=== PATIENT | female | born 1935 | race Caucasian/White ===

== ENCOUNTER 2017-10-10 09:37 | Inpatient (IN) | payer MEDICARE, OTHER, SELFPAY ==
[2017-09-29 15:06] VITALS: BP 159/76; PULSE 83; RESP 16; TEMP 37.1; O2SAT 93; BMI 22.6
--- NOTE | 2017-09-29 15:31 | SDCEKG_ITS ---
Test Reason : Blood Pressure : / mmHG Vent. Rate : 077 BPM Atrial Rate : 077 BPM P-R Int : 154 ms QRS Dur : 088 ms QT Int : 368 ms P-R-T Axes : 075 021 067 degrees QTc Int : 416 ms Normal sinus rhythm Normal ECG Confirmed by SIOMARA SARMIENTO, THERESE ([id number]), news videotape editor SOLOMON QUARLES ([id number]) on 10/03/2017 3:05:15 PM Referred By: Yoni Canchola Confirmed By:THERESE STRINGER MD
[2017-09-29 16:05] LABS: Hematocrit 37.2 % (37-47); Hemoglobin 12.3 g/dl (12.0-15.0); Mean Corp Hgb Conc 33.1 g/gl (32-36); Mean Corpuscular Hgb 29.1 pg (27.0-32.0); Mean Corpuscular Volume 87.9 fL (81-99); Mean Platelet Vol. 10.7 fl (6.2-12.0); Platelet Count 181 K/mm3 (150-450); RBC Distribution Width CV 13.6 % (11.6-14.6); Red Blood Count 4.23 M/mm3 (4.2-5.4)
[2017-09-29 16:06] LABS: Scan Indicated on CBC? Y/N NO
[2017-09-29 16:17] LABS: Anion Gap 5 (5-15); BUN 18 mg/dL (7-18); BUN/Creat Ratio 21.1 RATIO (10-20); Calcium,Total 8.9 mg/dL (8.5-10.1); Chloride 104 mmol/L (98-107); Creatinine, Serum 0.85 mg/dL (0.55-1.02); EST Glomerular Filtration Rate 68 mL/min (>60); Est Glom Filt Rate - Afr Amer 82 mL/min (>60); Estimated Creatinine Clearance 45.12 ml/min; Glucose 95 mg/dL (74-106); Potassium 4.1 mmol/L (3.5-5.1); Sodium Level 139 mmol/L (136-145)
[2017-10-10] VITALS (13 sets, daily range): BP systolic 124–218; BP diastolic 64–96; PULSE 64–88; RESP 14–18; TEMP 36.2–36.7; O2SAT 91–100; BMI 22.6
--- NOTE | 2017-10-10 | KNEE_PTH ---
PATIENT: JOVANY LEPE LOC: MS3 U#:[id number] AGE/SX: 82/F ROOM: [facility]313 RE10/10/[address]: Dr. Yoni Canchola DO : 1935 BED: 1 DIS: 10/12/2017 SPEC #: [id number] RECD: 10/10/17 16:09 STATUS: RAMESH REHailee #: [id number] RAGHAV: 10/10/17 00:[address]: Yoni Canchola DEPT: SURGICAL PATHOLOGY RECD BY: Yimi Franklin ENTERED: 10/11/17 08:13 SP TYPE: TOTAL KNEE OTHR DR: Dr. Maurice Hanks MD Tissues: Knee, NOS Procedures: Decalcification bone/plaque Surgery Specimen Level IV HEADER OPERATION: Left total knee replacement PRE-OP DIAGNOSIS: Osteoarthritis, left knee TISSUE SUBMITTED: Bone and tissue, left knee MICROSCOPIC DIAGNOSIS Bone and tissue, left knee, total knee replacement: Pieces of bone with degenerative osteoarthritic changes. Fibroadipose tissue, fibroconnective tissue and reactive synovial tissue. CANDICE:nova 10/13/17 MICROSCOPIC DESCRIPTION Slides are reviewed. GROSS DESCRIPTION Received is one container designated bone and tissue left knee. The specimen consists of multiple fragments of valadez-yellow bone measuring in aggregate 12 x 11 x 2 cm. Also in the specimen container are multiple fragments of yellow-white soft tissue measuring in aggregate 2 x 1 x 1 cm. A number of bony fragments contain articular surfaces consistent with tibial plateau and femoral condyle and displaying prominent osteophyte formation, eburnation, and bone erosion. Detonator Assembler sections are submitted in two cassettes as follows: 1 - soft tissue, 2 - bone after decalcification. / AM:nova 10/11/17 TC:5 [facility]: [id number]
[2017-10-10] MEDS: Acetaminophen 500 MG Tablet 1000 MG PO ×2 (10:15→20:53)
[2017-10-10] MEDS: oxyCODONE HCl Cr 10 MG Tablet PO (10:15)
[2017-10-10] MEDS: Lactated Ringers 1,000 ML 999 ML IV (10:41)
[2017-10-10] MEDS: Cefazolin 2 GM in 0.9% Normal Saline 100 ML IV (12:22)
--- NOTE | 2017-10-10 14:02 | PCM.IMDPSTOP ---
Immediate Post-Op Note Date of Procedure: 10/10/17 Primary Surgeon/Physician: Yoni Canchola electric meter technician: Karan Singh Pre-Operative Diagnosis: OA left knee with osteochondroma femur Post-Operative Diagnosis: same Surgery/Procedure Performed:: Left tkr Description of Surgical Findings:: see note Estimated Blood Loss: 25cc Specimen's removed: bone Type of Anesthesia:: Spinal General Anesthesia, Spinal/Supplemental ASA Class: ASA2 Mod Systematic Disease - Admit VTE Documentation VTE Present on Admission: No VTE Mechan Device Prophylaxis: SCD's, Thigh High LIZZETTE Hose VTE Pharm Prophylaxis ordered?: Yes
--- NOTE | 2017-10-10 14:24 | RAD_ITS ---
STUDY: X-RAY - LEFT KNEE REASON FOR EXAM: Female, 82 years old. Postop TECHNIQUE: 2 view(s) of the knee. COMPARISON: None. FINDINGS: There is a left knee arthroplasty. There are overlying skin tessie. There is gas in the joint space. RAD/Knee 1 or 2 Views IMPRESSION: 3 part left knee arthroplasty postoperative change. Electronically Signed: Ann Marie Reyna MD at 14:58 EDT Tel , Service support ,
[2017-10-10 14:52] LABS: Hematocrit 36.5 % (37-47); Hemoglobin 11.6 g/dl (12.0-15.0); Mean Corp Hgb Conc 31.8 g/gl (32-36); Mean Corpuscular Hgb 28.7 pg (27.0-32.0); Mean Corpuscular Volume 90.3 fL (81-99); Mean Platelet Vol. 10.6 fl (6.2-12.0); Platelet Count 164 K/mm3 (150-450); RBC Distribution Width CV 13.3 % (11.6-14.6); RBC Distribution Width SD 43.5 fl (35.1-43.9); Red Blood Count 4.04 M/mm3 (4.2-5.4); Scan Indicated on CBC? Y/N NO; White Blood Count 5.3 K/mm3 (4.4-11.0)
[2017-10-10] MEDS: Lactated Ringers 1,000 ML 80 ML IV (18:09)
[2017-10-10] MEDS: Aspirin 325 MG Tablet PO (18:09)
[2017-10-10] MEDS: Cefazolin 1 GM/50 ML BAG IV (20:51)
[2017-10-10] MEDS: Gabapentin 100 MG Capsule PO (20:53)
[2017-10-10] MEDS: Propranolol 10 MG Tablet 20 MG PO (20:53)
[2017-10-11 01:54] VITALS: BP 154/70; PULSE 72; RESP 14; TEMP 36.7; O2SAT 96
[2017-10-11] MEDS: oxyCODONE 5 MG Tablet PO ×5 (02:01→20:50)
[2017-10-11] MEDS: Acetaminophen 500 MG Tablet 1000 MG PO ×3 (05:03→21:06)
[2017-10-11] MEDS: Cefazolin 1 GM/50 ML BAG IV (05:03)
[2017-10-11 06:28] LABS: Hematocrit 32.5 % (37-47); Hemoglobin 10.2 g/dl (12.0-15.0); Mean Corp Hgb Conc 31.4 g/gl (32-36); Mean Corpuscular Hgb 28.4 pg (27.0-32.0); Mean Corpuscular Volume 90.5 fL (81-99); Mean Platelet Vol. 10.9 fl (6.2-12.0); Platelet Count 129 K/mm3 (150-450); RBC Distribution Width CV 13.6 % (11.6-14.6); RBC Distribution Width SD 45.2 fl (35.1-43.9); Red Blood Count 3.59 M/mm3 (4.2-5.4); White Blood Count 5.5 K/mm3 (4.4-11.0)
[2017-10-11 06:29] LABS: Scan Indicated on CBC? Y/N NO
[2017-10-11 06:30] LABS: Anion Gap 8 (5-15); BUN 17 mg/dL (7-18); BUN/Creat Ratio 17.3 RATIO (10-20); Calcium,Total 7.9 mg/dL (8.5-10.1); Chloride 105 mmol/L (98-107); Creatinine, Serum 0.98 mg/dL (0.55-1.02); EST Glomerular Filtration Rate 57 mL/min (>60); Est Glom Filt Rate - Afr Amer 69 mL/min (>60); Estimated Creatinine Clearance 39.14 ml/min; Glucose 91 mg/dL (74-106); Potassium 4.4 mmol/L (3.5-5.1); Sodium Level 136 mmol/L (136-145)
[2017-10-11 07:31] VITALS: BP 105/49; PULSE 68; RESP 18; TEMP 36.4; O2SAT 95
[2017-10-11] MEDS: Multivitamins,Therapeutic Tablet 1 TABLET PO (07:32)
[2017-10-11] MEDS: Aspirin 325 MG Tablet PO ×2 (07:32→16:36)
[2017-10-11] MEDS: Vitamin E 400 UNITS Capsule PO (07:33)
[2017-10-11] MEDS: Calcium Carb/Vitamin D 1 TABLET Tablet PO (07:33)
--- NOTE | 2017-10-11 08:00 | PCM.PN.ORT ---
Subjective: Doing well, pain well controlled. - Physical Exam General: Alert, Oriented x3, No apparent distress HEENT: Atraumatic Oral: Moist Mucosa Lungs: Clear to auscultation Skin: Incision - C/D/I Musculoskeletal: Tenderness - left knee as expected Neurological: Neuro grossly intact Vital Signs Temp Pulse Resp BP Pulse Ox 97.5 F L 68 18 105/49 L 95 10/11/17 07:31 10/11/17 07:31 10/11/17 07:31 10/11/17 07:31 10/11/17 07:31 Oxygen Delivery Method Room Air Weight: 138 lb Body Mass Index (BMI) 22.6 Intake and Output for Last 24 Hours 10/09/17 10/10/17 10/11/17 23:59 23:59 23:59 Intake Total 4100 / 4100 656 / 656 Balance 4100 / 4100 656 / 656 Laboratory Tests Past 24 Hrs 10/10/17 10/11/17 10/11/17 14:40 05:46 05:46 WBC 5.3 5.5 RBC 4.04 L 3.59 L Hgb 11.6 L 10.2 L Hct 36.5 L 32.5 L MCV 90.3 90.5 MCH 28.7 28.4 MCHC 31.8 L 31.4 L RDW 13.3 13.6 RDW Differential 43.5 45.2 H Plt Count 164 129 L MPV 10.6 10.9 Sodium 136 Potassium 4.4 Chloride 105 Carbon Dioxide 23.0 Anion Gap 8 BUN 17 Creatinine 0.98 Estim Creat Clear Calc 39.14 Est GFR (MDRD) Af Amer 69 Est GFR (MDRD) Non-Af 57 L BUN/Creatinine Ratio 17.3 Glucose 91 Calcium 7.9 L Medical Necessity - Tobacco Use Smoking Status: Never smoker Assessment/Plan POD #1 Left TKR PT today, patient hopes to go to rehab for a short stay, will have her discuss with outreach and education social worker and check insurance
[2017-10-11 13:13] VITALS: BP 130/79; PULSE 88; RESP 18; TEMP 36.3; O2SAT 94
--- NOTE | 2017-10-11 16:04 | CASEMGMT ---
SUNIL TSE Face to Face with patient for initial transition planning/care coordination assessment. SUNIL TSE introduced self and role at [facility]. Patient sitting in chair, alert and oriented. Patient willing to participate in assessment and is able to answer all questions appropriately. Care providers, pharmacy, and demographics verified. Patient states she lives in 1 story home with with 2 steps to enter home. Patient states she has shower chair, BSC, raised toilet seat, grab bars, hip kit, and walker at home. Patient wishes to discharge home and is setup with [facility] for outpatient therapy with providing transportation. Patient states she has no further needs or concerns at this time. CM to follow for discharge planning needs that may arise. Disposition plan: Patient to discharge home with outpatient surgery, family support, and follow-up plans in place. Ramona Major RN, CM
[2017-10-11] MEDS: Ketorolac 15 MG/ML Vial IV (19:34)
[2017-10-11] MEDS: 0.9% NaCl Peripheral Flush Adult/Peds IV (19:35)
[2017-10-11 20:53] VITALS: BP 166/80; PULSE 96; RESP 18; TEMP 36.4; O2SAT 92
[2017-10-11] MEDS: Propranolol 10 MG Tablet 20 MG PO (21:07)
[2017-10-11] MEDS: Gabapentin 100 MG Capsule PO (21:07)
[2017-10-12] MEDS: oxyCODONE 5 MG Tablet PO ×3 (00:51→10:37)
[2017-10-12 03:57] VITALS: BP 133/67; PULSE 87; RESP 18; TEMP 37; O2SAT 94
[2017-10-12] MEDS: Acetaminophen 500 MG Tablet 1000 MG PO ×2 (06:25→13:00)
--- NOTE | 2017-10-12 08:04 | PCM.PN.ORT ---
Subjective: Doing well this AM. Had spasms in left leg last night, but has passed. Ready to go home after PT today. - Physical Exam General: Alert, Oriented x3, No apparent distress Skin: Incision - C/D/I Musculoskeletal: Tenderness - left knee as expected. No spasm, negative Ross and Amaury signs Vital Signs Temp Pulse Resp BP Pulse Ox 98.6 F 87 18 133/67 H 94 10/12/17 03:57 10/12/17 03:57 10/12/17 03:57 10/12/17 03:57 10/12/17 03:57 Oxygen Delivery Method Room Air Weight: 138 lb 0.15 oz Body Mass Index (BMI) 22.6 Intake and Output for Last 24 Hours 10/10/17 10/11/17 10/12/17 23:59 23:59 23:59 Intake Total 4100 / 4100 1716 / 1716 300 / 300 Balance 4100 / 4100 1716 / 1716 300 / 300 Medical Necessity - Tobacco Use Smoking Status: Never smoker Assessment/Plan s/ left TKR PT this am and home this PM
--- NOTE | 2017-10-12 09:59 | PCM.DC.TKR ---
Discharge Diet: No Restrictions Discharge Activity: May Not Drive, May Shower, Use Walker May shower in (days): 1 Ice area for (Minutes): 20 - each hour while awake. Weight Bearing Status: Weight bearing as tolerated Elevate: Operative Extremity Additional Activity Instructions:: Wear elastic stockings for 2 weeks after your surgery. Call your doctor if your incision/area has: Continuous Slow Oozing, Sudden Increased Bleeding, Increased Pain/ Swelling, Increased Redness, Foul Smelling Discharge Call your doctor if you observe: Fever of 101 or Higher, Coldness, Increased Pain - in extremity, Numbness or Tingling, Change in Color, Calf discomfort, Uncontrolled pain Change Dressing in (Days):: 0 - and daily as needed. Remove Dressing in (days):: 8 Cleanse incision/area with: Soap & Water Allergies/Adverse Reactions: Allergies Sulfa (Sulfonamide Antibiotics) Allergy (Verified 04/09/16 14:52) Rash CRYSTAL LIGHT LEMONADE Allergy (Uncoded 04/09/16 14:52) Swelling Medications to take at Discharge Calcium Carbonate/Vitamin D3 [Calcium 600-Vit D3 800 Tablet] 1 each PO DAILY 04/09/16 Cholecalciferol (Vitamin D3) [Vitamin D3] 1,000 unit PO DAILY 04/09/16 Cranberry Extract [Cranberry] 400 mg PO DAILY 04/09/16 Multivitamins,Therapeutic [Multivitamin] 1 tablet PO DAILY 04/09/16 Propranolol HCl [Inderal (Beta Donna)] 20 mg PO QHS 04/09/16 Vitamin E 400 units PO DAILY 04/09/16 Gabapentin [Neurontin] 100 mg PO QHS 09/29/17 Acetaminophen [Tylenol] 1,000 mg PO Q8 #90 tab 10/12/17 Aspirin 325 mg PO BIDCM #60 tab 10/12/17 Cyclobenzaprine [Flexeril] 5 mg PO Q12.TCU 7 Days #14 tab 10/12/17 Oxycodone [Oxyir] 5 - 10 mg PO Q4H PRN PRN 7 Days #80 tab 10/12/17 The following prescriptions were given: Oxycodone [Oxyir] 5 - 10 mg PO Q4H PRN PRN 7 Days #80 tab PRN Reason: Mod-Severe Pain (4-01/11) Acetaminophen [Tylenol] 1,000 mg PO Q8 #90 tab Cyclobenzaprine [Flexeril] 5 mg PO Q12.TCU 7 Days #14 tab Aspirin 325 mg PO BIDCM #60 tab Primary Care Physician: Maurice Hanks MD [Primary Care Provider] - Test Results: Test results from this visit will be discussed in further detail at your follow-up appointment, if applicable. Please Follow Up With: Yoni Canchola DO
[2017-10-12] MEDS: Calcium Carb/Vitamin D 1 TABLET Tablet PO (10:33)
[2017-10-12] MEDS: Vitamin E 400 UNITS Capsule PO (10:33)
[2017-10-12] MEDS: Multivitamins,Therapeutic Tablet 1 TABLET PO (10:33)
[2017-10-12] MEDS: Aspirin 325 MG Tablet PO (10:33)
[2017-10-12 10:40] VITALS: BP 124/62; PULSE 83; RESP 18; TEMP 37.1; O2SAT 96
== END 2017-10-12 13:10 | disposition home or self-care (01) | DRG 470 ==
LOC: ACINP 09:38 → MS3 13:59
PROVIDERS: Admitting Provider Orthopaedic Surgery; Family Provider Family Medicine; PCP Family Medicine; Visit Provider Orthopaedic Surgery
PROC: 0SRD0J9 Replacement of Left Knee Joint with Synthetic Substitute, Cemented, Open Approach (ICD-10-PCS; CPT 27447; principal; 2017-10-10 12:05)
DX: M17.12 Unilateral primary osteoarthritis, left knee (principal); D16.22 Benign neoplasm of long bones of left lower limb
CPT/HCPCS: 36415; 73560; 80048; 85027; 87081; 88305; 88311; 93005; 97110; 97162; 97165; 97530; C1776; J7120; A4216

== ENCOUNTER → 2018-08-22 | Outpatient (CLI) | payer MEDICARE, OTHER, SELFPAY ==
--- NOTE | 2018-08-22 09:03 | NM_ITS ---
CLINICAL: 83-year-old female with reported history of painful right hip arthroplasty operated approximately 9 years previous. LIMITED 99m Tc MDP THREE PHASE BONE SCINTIGRAPHY COMPARISON: None available FINDINGS: Following the intravenous administration of 25.8 mCi of 99m Tc MDP, three-phase bone acquisitions of the pelvis reveal: 1. The flow and immediate static blood pool acquisitions demonstrate normal-symmetric arterial and venous phase distribution of the radiopharmaceutical to the bilateral anterior hemipelvis. Venous hyperemia appears evident in the region of the posterior aspect of the proximal femoral component of the right hip prosthesis. 2. Delayed images depict subtle increased tracer concentration noted in the proximal and distal femoral component of the symptomatic right hip prosthesis. 3. An increase in tracer distribution is noted in the fifth lumbar vertebra posteriorly on the right. Otherwise, the remaining limited skeletal structures are scintigraphically unremarkable. Mild enhanced tracer uptake is noted in the proximal femoral component of the asymptomatic left hip arthroplasty most consistent with normal postsurgical change. NM/Bone Scan Three Phase IMPRESSION: 1. The minimally increased radiopharmaceutical distribution noted in the femoral component of the symptomatic right hip prosthesis which may represent mild loosening in the setting of operative intervention > 2 years prior to the current presentation. If an infectious ideology is contemplated, correlation with labeled leukocyte imaging is recommended. 2. Degenerative arthritis is defined in the fifth lumbar vertebra. Electronically Signed: Arthur Mosquera DO at 10:35 EDT Tel , Service support ,
== END | disposition home or self-care (01) ==
LOC: NM 09:00
PROVIDERS: Family Provider Family Medicine; PCP Family Medicine; Referring Provider Physician Assistant; Visit Provider Physician Assistant
DX: Z96.641 Presence of right artificial hip joint (principal)
CPT/HCPCS: 78315

== ENCOUNTER → 2019-01-05 | Outpatient (CLI) | payer MEDICARE, OTHER, SELFPAY ==
[2017-10-10 16:27] VITALS: BMI 22.6
[2019-01-05 12:50] LABS: Erythrocyte Sedimentation Rate 10 mm/hr (0-30)
[2019-01-05 12:52] LABS: Absolute Lymphocyte Count 1.03 X10^3/uL (0.83-4.51); Basophil# 0.05 X10^3/uL; Basophil% 0.8 % (0-1); Eosinophil# 0.19 X10^3/uL; Eosinophils% 3.2 % (0-5); Hematocrit 39.1 % (37-47); Hemoglobin 12.7 g/dL (12.0-15.0); Lymphocyte # 1.03 X10^3/ul (4.0); Lymphocyte % 17.5 % (19-41); Mean Corp Hgb Conc 32.5 g/dL (32-36); Mean Corpuscular Hgb 30.7 pg (27.0-32.0); Mean Corpuscular Volume 94.4 fL (81-99); Mean Platelet Vol. 10.7 fl (6.2-12.0); Monocyte# 0.59 X10^3/uL; NRBC Flagged by Analyzer 0 % (0-5); Platelet Count 191 K/mm3 (150-450); RBC Distribution Width CV 13.1 % (11.6-14.6); RBC Distribution Width SD 44.3 fl (35.1-43.9); Red Blood Count 4.14 M/mm3 (4.2-5.4); White Blood Count 5.9 K/mm3 (4.4-11.0)
== END | disposition home or self-care (01) ==
PROVIDERS: Family Provider Family Medicine; PCP Family Medicine; Referring Provider Specialist; Visit Provider Specialist
DX: Z96.641 Presence of right artificial hip joint (principal)
CPT/HCPCS: 36415; 85025; 85652; 86140

== ENCOUNTER → 2019-01-11 | Outpatient (CLI) | payer MEDICARE, OTHER, SELFPAY ==
--- NOTE | 2019-01-11 10:10 | RAD_ITS ---
EXAM DESCRIPTION: Left hip aspiration CLINICAL HISTORY: 83 years Female, left hip pain COMPARISON: None. TECHNIQUE: The procedure was explained to the patient. After this a skin site was marked with fluoroscopy. 16 seconds of fluoroscopy was utilized. Using fluoroscopy a needle was inserted into the left hip joint along the artificial left femoral neck. FINDINGS: An initial attempt was made to aspirate the ascites from the left hip joint and this was unsuccessful. After this, 6 cc of sterile saline was injected through the needle and approximately 7 cc of fluid was aspirated from the left hip joint including the sterile saline. This fluid collection was then capped and sent to laboratory for further analysis. 2 images of the left hip were obtained. RAD/Inj/Asp Umberto Jt Should/Hip/Knee IMPRESSION: A left hip aspiration under fluoroscopy was performed as described above and fluid was sent to laboratory for further analysis. Electronically Signed: Andrey Peters, at 15:59 EDT Tel , Service support ,
[2019-01-11 11:21] LABS: Synovial Fld Mononuclear WBC % 72.5 %; Synovial Fld Polynuclear WBC # 0.557 10^3/uL; Synovial Fld Polynuclear WBC % 27.5 %
[2019-01-11 11:38] LABS: AUTO B FLUID DILUENT BKGD CT WBC <0.1 RBC <0.01 (W<.1,R<.01); Appearance /Synovial Fluid Sl Cl (CLEAR); Color / Synovial Fluid Yellow (Pale Yellow)
[2019-01-11 11:39] LABS: RBC /Synovial Fluid 615 /mm3 (0)
[2019-01-11 11:50] LABS: Source / Synovial Fluid RT HIP
[2019-01-11 13:09] LABS: Lymph 24 %; Monocyte /Synovial Fluid 55 %; Neutrophil 17 % (0-25); Plasma Cell /Synovial Fluid 4 %
[2019-01-11 13:10] LABS: Body Fluid QC Type(s) BF1Q
[2019-01-12 10:11] LABS: Pathologist Comment Reviewed
== END | disposition home or self-care (01) ==
LOC: RAD 10:06
PROVIDERS: Family Provider Family Medicine; PCP Family Medicine; Referring Provider Specialist; Visit Provider Specialist
DX: M25.551 Pain in right hip (principal); Z96.641 Presence of right artificial hip joint
CPT/HCPCS: 20610; 77002; 87015; 87070; 87075; 87101; 87116; 87205; 87206; 89050; 89051; Q9967

== ENCOUNTER → 2020-02-18 14:01 | Outpatient (CLI) | payer MEDICARE, OTHER, SELFPAY ==
[2017-10-10 16:27] VITALS: BMI 22.6
--- NOTE | 2020-02-18 14:07 | CT_ITS ---
STUDY: CTA HEAD AND NECK WITH CONTRAST REASON FOR EXAM: Female, 85 years old. DYSTHRIA, TRANSIENT ALTERATION OF AWARENESS, EPISODES OF NAUSEA, HX-SKIN CA RADIATION DOSAGE (If Supplied By Facility): CTDIvol = ( 27.93 ) mGy, DLP = ( 1288.89 ) mGycm TECHNIQUE: CT angiography was performed with a multi-detector CT scanner. Data acquisition was obtained from the skull base through the vertex following intravenous administration of IV 100mL Isovue-370. MIP images were reconstructed from the axial data set. Post-processing of the angiographic images was performed, with multiplanar reformation and 3D reconstruction. Individualized dose optimization techniques were used for this CT. COMPARISON: No relevant priors. FINDINGS: Normal bilateral petrous carotid arteries. Normal right cavernous carotid artery with a normal supraclinoid bifurcation. Normal left cavernous carotid artery with a normal supraclinoid bifurcation. Normal right A1 segments of the anterior cerebral artery. Normal left A1 segments of the anterior cerebral artery. Normal intact anterior communicating artery (ACOM). Normal bilateral A2 segments of the anterior cerebral arteries. Normal right M1 and M2 segments of the middle cerebral arteries, with a normal M1 bifurcation. Normal left M1 and M2 segments of the middle cerebral arteries, with a normal M1 bifurcation. There is a persistent origin of the right posterior cerebral artery with absence of the posterior communicating artery (PCOM). Normal left posterior communicating artery (PCOM). Normal bilateral vertebral arteries. Normal basilar artery with a normal basilar bifurcation. The visualized bilateral superior cerebellar (SCA) arteries are normal. Normal bilateral P1, P2 and visualized P3 segments of the posterior cerebral arteries. There is no demonstrated aneurysm of the hopi of Kohli. There is no demonstrated abnormality of the visualized brain. AORTIC ARCH: There is a bovine origin of the great vessels arising from the aortic arch with a common origin of the brachiocephalic and left common carotid artery. Normal origin of the left subclavian artery. Normal origins of the brachiocephalic, left common carotid, and left subclavian arteries. RIGHT CAROTID ARTERIES: Normal right common carotid artery (CCA). There is mild atherosclerotic plaque formation with minimal narrowing of the right carotid bulb. There is mild atherosclerotic plaque formation of the origin of the right internal carotid artery with less than 50% cross sectional diameter stenosis. Normal visualized cervical portion of the right internal carotid artery. Normal origin of the right external carotid artery (ECA). LEFT CAROTID ARTERIES: Normal left common carotid artery (CCA). There is mild atherosclerotic plaque formation with minimal narrowing of the left carotid bulb. Normal origin of the left internal carotid (ICA) artery without a hemodynamically significant stenosis. Normal visualized cervical portion of the left internal carotid artery. Normal origin of the left external carotid artery (ECA). VERTEBRAL ARTERIES: Normal bilateral vertebral arteries. CT/CTA Head AND Neck W/ Contrast IMPRESSION: 1. Bovine arch. 2. Mild (20%) right carotid stenosis. 3. No left carotid stenosis. 4. Patent vertebral arteries bilaterally. 5. No intracranial stenosis or aneurysm. Electronically Signed: Arthur Ogden MD at 16:02 EST Tel , Service support ,
[2020-02-19 07:52] LABS: CREATININE FINGERSTICK 0.95 mg/dL (0.55-1.02)
== END ==
PROVIDERS: PCP Family Medicine
DX: R47.1 Dysarthria and anarthria (principal); R40.4 Transient alteration of awareness
CPT/HCPCS: 70496; 70498; Q9967

== ENCOUNTER 2020-09-10 15:58 | Observation (INO) | payer MEDICARE, OTHER, SELFPAY ==
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
[2020-09-03 13:21] LABS: Magnesium 2.1 mg/dL (1.6-2.6)
[2020-09-08 12:08] VITALS: BMI 22.6
[2020-09-10] VITALS (13 sets, daily range): BP systolic 165–212; BP diastolic 72–99; PULSE 76–96; RESP 16–18; TEMP 35.9–36.8; O2SAT 93–100; BMI 22.4
--- NOTE | 2020-09-10 | KNEE_PTH ---
PATIENT: JOVANY LEPE LOC: MS3 U#:[id number] AGE/SX: 85/F ROOM: [facility] RE09/10/[address]: Dr. Rojelio Stacy MD : 1935 BED: 1 DIS: 09/11/2020 SPEC #: [id number] RECD: 09/10/20 15:18 STATUS: RAMESH TATIANA #: [id number] RAGHAV: 09/10/20 00:[address]: Rojelio Stacy DEPT: SURGICAL PATHOLOGY RECD BY: Eduin Gerardo ENTERED: 09/11/20 08:17 SP TYPE: TOTAL KNEE OTHR DR: DO Dr. Maurice Heredia MD Dr. Steven Widmer, MD Tissues: Knee, NOS Procedures: Decalcification bone/plaque Surgery Specimen Level IV HEADER OPERATION: ERAS, knee revision patella component, polyethylene exchange PRE-OP DIAGNOSIS: Painful left total knee arthroplasty; autonomic dysfunction; rheumatoid arthritis TISSUE SUBMITTED: Tissue left knee MICROSCOPIC DIAGNOSIS Bone and soft tissue of left knee, total knee resection: Consistent with degenerative joint disease. AM:nova 09/15/2020 MICROSCOPIC DESCRIPTION Slides are reviewed. GROSS DESCRIPTION Received in fixative is one container labeled with the patient's name and designated tissue left knee. The specimen consists of an irregular piece of valadez, indurated tissue measuring 13 x 6 x 1 cm. Also present in the container are two pieces of bone measuring in aggregate 3 x 1.5 x 0.3 cm. Also present in the container is a polymer with a central hole measuring 2.5 x 2.5 x 0.2 cm, most likely representing the patellar component. Radar Technician sections are submitted in three cassettes as follows: 1 & 2 - soft tissue, 3 - bone after decalcification, submitted in entirety. The polymer component is for gross identification only. / SJ:nova 09/11/20 TC:5 CPT: 63730, 63587
[2020-09-10] MEDS: Acetaminophen 500 MG Tablet 1000 MG PO ×2 (10:39→22:09)
[2020-09-10] MEDS: Gabapentin 600 MG Tablet PO (10:39)
[2020-09-10] MEDS: Lactated Ringers 1,000 ML 999 ML IV ×2 (10:39→14:00)
[2020-09-10 11:05] LABS: Bedside Glucose 102 mg/dL (70-110)
[2020-09-10] MEDS: Cefazolin 2 GM in 0.9% Normal Saline 100 ML IV (11:50)
[2020-09-10] MEDS: dexAMETHasone 10 MG/ML Vial IV (12:15)
--- NOTE | 2020-09-10 13:15 | OP.PCM_ITS ---
Report of Operation Date of Procedure: 09/10/20 Pre-Operative Diagnosis: Painful left total knee replacement, instability and p atellofemoral overstuffing Post-Operative Diagnosis: Painful left total knee replacement, instability and patellofemoral overstuffing Surgery/Procedure Performed:: Revision left total knee replacement 1 component tibial polyethylene exchange and patellar revision. Description of Surgical Findings:: Stable knee with good patella tracking. We reduce the thickness of the patella to 12 mm in thickness. Polyethylene was increased to 13 mm which gave full extension with good stability in both flexion and extension. Surgeon: Ambrosio Rowley casino floor runner: Adrianna Trotter Type of Anesthesia: Spinal Anesthesiologist: Morro Jacobo Special Medications: 2 g Ancef, 1 g TXA at incision, 1 g TXA closure, 10 mg Decadron, joint cocktail (5 mg Duramorph, 30 mL of 0.5% Ropivicaine, 1000 units of epinephrine, 30 mg of Toradol) Specimen's removed: 3 separate specimens were sent to microbiology Fluids Replaced: 1000 mL crystalloid Description of Procedure: 85 yo F history of L TKA presents with pain and instability. Reviewed options were discussed the patient. Based on acuity of the symptom duration and intensity and failure of conservative measures we did elect to proceed with a revision polyethylene exchange and patellar revision. Risks and benefits of the procedure were discussed with the patient including but not limited to blood loss, DVTs, PEs, neurovascular damage, infection, general risk of anesthesia including loss of life. Demonstrated understanding and was able to sign informed consent. On the date of procedure patient'sL lower extremity was marked in the preoperative area. The patient was then taken back to the operating room where the patient was placed on the table in the supine position. All bony prominences were identified a well-padded. Anesthesia assumed control of the C-spine and airway and remained controlled throughout the remainder of the procedure. A tourniquet was placed on the operative thigh and the leg was prepped in a sterile fashion. The surgeon then scrubbed at this time .Upon reentering the room left lower extremity was draped in a standard orthopedic fashion. A timeout was then called and everyone agreed upon the side, the site, the procedure to be performed, patient's identity and antibiotics given. A midline skin incision was made and sharp dissection was taken down through skin subcutaneous tissue and fat. Appropriate flaps were elevated medially and laterally. His arthrotomy was identified and the standard medial parapatellar incision was made and the patella was subluxed laterally. The standard deep MCL release was done. At this point an aggressive synovectomy commenced. Our attention was first turned towards the subpatellar pouch and all synovium and tissues were debrided. We then directed our attention towards medial lateral gutters were these tissues were debrided. With the knee in extension the patella was then everted. We carefully cleaned up adhesive tissue around the patella. A TPS saw was then used to undermine the patella implant and cement mantle. Once was done a cleanup cut was made with the standard patella saw. Once this was done we measured and the thickness of the patella was 12 mm throughout. Knee was then flexed up the polyethylene was removed. Once polyethylene was removed we did the remainder of the synovium in the medial and lateral gutters and along the lateral structures and MCL. And also there was a membrane beneath the tibial baseplate that was removed and sent for culture. He had completed our synovectomy and were happy with the joint. We then proceeded to drill for the 29 mm patella button for a press-fit implant. We then trialed the femoral polyethylene to a size 13 which gave us full extension good stability in flexion and extension. Trial component was removed and 6 L of normal saline were then irrigated throughout the wound with low-pressure lavage and the wound was once again explored. After completing the lavage the final components were opened. PS 13 mm polyethylene was then opened and put into place. Tourniquet was let down and hemostasis was obtained as well as possible. Once the final components were placed the wound was lavaged with a 3-minute dilute Betadine solution followed by irrisept solution and copiously irrigated with normal saline solution. The wound was closed in a layer dougherty fashion using #1 vicryl interrupted sutures for the arthrotomy, 2-0 interrupted Vicryl for the subcuticular layer and tessie for final skin closure. A sterile compressive dressing was then placed. The patient was then awakened from anesthesia, transferred to the [facility] and transferred to the PACU for recovery. Post op plan DVT prophylaxis: Aspirin twice daily. Therapy: Weightbearing as tolerated, range of motion as tolerated Cultures: We will follow cultures for 2 weeks patient will remain on doxycycline for 1 week as we follow initial cultures. Complications No intraoperative complications Admit VTE Documentation VTE Present on Admission: No VTE Mechan Device Prophylaxis: SCD's and Thigh High LIZZETTE Hose VTE Pharm Prophylaxis ordered?: Yes
[2020-09-10] MEDS: Lactated Ringers 1,000 ML 125 ML IV (15:01)
--- NOTE | 2020-09-10 16:30 | PN.HOSP_ITS ---
Subjective Subjective Patient underwent of revision of left total knee replacement with polyethylene exchange and patellar revision. Currently feels well. BP has been elevated BP during admission. Patient informed nursing that she typically has labile blood pressures where she can be very elevated and to very low. She is currently hav ing no symptoms at this time. Objective Data Objective Data Vital Signs: Vital Signs Temp Pulse Resp BP Pulse Ox 36.8 C 89 18 202/83 H 93 09/10/20 15:58 09/10/20 15:58 09/10/20 15:58 09/10/20 15:58 09/10/20 15:58 Oxygen Flow Rate (L/min) 6 Oxygen Delivery Method Room Air Weight: 63 kg Body Mass Index (BMI) 22.4 Intake & Output: Intake and Output for Last 24 Hours 09/08/20 09/09/20 09/10/20 23:59 23:59 23:59 Intake Total 2433.5 / 2433.5 Balance 2433.5 / 2433.5 Lab / Micro Data Labs: Laboratory Results - last 24 hr 09/10/20 10:22 POC Glucose 102 Micro: Microbiology 09/03/20 12:30 Swab (Method) Nasal Screen MRSA/MSSA - Final Physical Exam Const alert Exam Limitations: no limitations HEENT Head and Scalp: normocephalic Neck no lymphadenopathy Resp normal respiratory effort and clear to auscultation bilaterally Cardio regular rate, regular rhythm, S1 normal heart sound and S2 normal heart sound GI normal to inspection, nondistended, normoactive bowel sounds, non-tender and non-distended Neuro Sensorium / Orientation: awake and alert Assessment & Plan Assessment/Plan (1) HTN (hypertension): QUALIFIERS: Hypertension type: unspecified Qualified Code(s): I10 - Essential (primary) hypertension PLAN: 1. Accelerated hypertension * Patient at baseline has very labile blood pressure. Currently her blood pressure is 202/83. Currently asymptomatic. Patient only on propranolol but states to nursing that she can have dramatically low blood pressure relatively quickly. * Will add as needed clonidine for systolic greater than 200 * Patient states that this is related with some autonomic dysfunction. 2. Status post left knee revision * Management per orthopedics 3. VTE prophylaxis: Per orthopedics. Currently patient is on aspirin 81 mg twice daily. Charges/Coding Visit Charges Inpatient E&M: 93827 Subs Hosp L2
[2020-09-10] MEDS: Lactated Ringers 1,000 ML 75 ML IV (16:43)
[2020-09-10] MEDS: Aspirin 81 MG TAB.CHEW PO (16:48)
[2020-09-10] MEDS: Famotidine 20 MG Tablet PO (16:48)
[2020-09-10] MEDS: Ensure Surgery 237 ML LIQUID PO (16:48)
--- NOTE | 2020-09-10 19:22 | RAD_ITS ---
HISTORY: post op -- AP and Lateral xray of operative knee in PACU EXAMINATION/TECHNIQUE: XR Knee 1 or 2 Views: COMPARISON: 10/10/17 FINDINGS: BONES/JOINTS: Anatomic alignment of the right knee prosthesis with overlying skin tessie and small amount of postsurgical air in the joint space anteriorly. No sclerotic or destructive changes observed. RAD/Knee 1 or 2 Views IMPRESSION: Status post right knee replacement. at 2048 Reported and signed by: Fritz Skaggs MD Electronically Signed: Fritz Skaggs MD at 20:46 EDT Tel , Service support ,
[2020-09-10] MEDS: Cefazolin 1 GM/50 ML BAG IV (22:09)
[2020-09-10] MEDS: Gabapentin 100 MG Capsule PO (22:11)
[2020-09-10] MEDS: Doxycycline 100 MG CAPSULE PO (22:11)
[2020-09-10] MEDS: Propranolol 10 MG Tablet 20 MG PO (22:11)
[2020-09-11 02:00] VITALS: BP 190/90; PULSE 82; RESP 16; TEMP 36.3; O2SAT 97
[2020-09-11 03:00] VITALS: PULSE 88
[2020-09-11 05:13] VITALS: BP 187/66; PULSE 66; RESP 16; TEMP 36.2; O2SAT 98
[2020-09-11] MEDS: Cefazolin 1 GM/50 ML BAG IV (05:25)
[2020-09-11] MEDS: Acetaminophen 500 MG Tablet 1000 MG PO ×2 (05:27→14:15)
--- NOTE | 2020-09-11 05:51 | NURSING ---
left knee dressing leaking, 3 sides of the lower half of the mepilex, pressures dressing neri and 2# sand bag applied to stop the bleeding before the new mepilex dressing will be applied.
[2020-09-11 06:16] LABS: Hematocrit 35.5 % (37-47); Hemoglobin 11.5 g/dL (12.0-15.0); Mean Corp Hgb Conc 32.4 g/dL (32-36); Mean Corpuscular Hgb 30.3 pg (27.0-32.0); Mean Corpuscular Volume 93.4 fL (81-99); Mean Platelet Vol. 10.9 fl (6.2-12.0); Platelet Count 180 K/mm3 (150-450); RBC Distribution Width CV 13.2 % (11.6-14.6); RBC Distribution Width SD 45.3 fl (35.1-43.9); White Blood Count 7.2 K/mm3 (4.4-11.0)
[2020-09-11 06:38] LABS: Anion Gap 4 (5-15); BUN 13 mg/dL (7-18); Calcium,Total 8.4 mg/dL (8.5-10.1); Chloride 106 mmol/L (98-107); Creatinine, Serum 0.87 mg/dL (0.55-1.02); EST Glomerular Filtration Rate 66 mL/min (>60); Est Glom Filt Rate - Afr Amer 79 mL/min (>60); Estimated Creatinine Clearance 43.45 ml/min; Glucose 119 mg/dL (74-106); Potassium 3.8 mmol/L (3.5-5.1); Sodium Level 137 mmol/L (136-145)
[2020-09-11] MEDS: Mag Hydrox/Al Hydrox/Simeth 30 ML UDC PO (06:42)
--- NOTE | 2020-09-11 06:57 | PCM.PN.ORT ---
Subjective Subjective Patient is doing well. She is taking Tylenol for pain. She has no chest pain or shortness of breath. Overall she has no significant complaints. She is been doing well with therapy. She did have some drainage on the dressing and required a dressing change this morning. Current dressing is clean and dry. Objective Data Objective Data Vital Signs: Vital Signs Temp Pulse Resp BP Pulse Ox 97.2 F L 66 16 187/66 H 98 09/11/20 05:13 09/11/20 05:13 09/11/20 05:13 09/11/20 05:13 09/11/20 05:13 Oxygen Flow Rate (L/min) 6 Oxygen Delivery Method Room Air Weight: 138 lb 14.259 oz Body Mass Index (BMI) 22.4 Intake & Output: Intake and Output for Last 24 Hours 09/09/20 09/10/20 09/11/20 23:59 23:59 23:59 Intake Total 3086.0 / 3486.0 1500 / 1500 Balance 3086.0 / 3486.0 1500 / 1500 Lab / Micro Data Result Diagrams: 09/11/20 05:54 09/11/20 05:54 Labs: Laboratory Results - last 24 hr 09/10/20 09/11/20 09/11/20 10:22 05:54 05:54 WBC 7.2 RBC 3.80 L Hgb 11.5 L Hct 35.5 L MCV 93.4 MCH 30.3 MCHC 32.4 RDW Std Deviation 45.3 H RDW Coeff of Jamil 13.2 Plt Count 180 MPV 10.9 Sodium 137 Potassium 3.8 Chloride 106 Carbon Dioxide 27.0 Anion Gap 4 L BUN 13 Creatinine 0.87 Estim Creat Clear Calc 43.45 Est GFR (MDRD) Af Amer 79 Est GFR (MDRD) Non-Af 66 BUN/Creatinine Ratio 15.0 Glucose 119 H Calcium 8.4 L POC Glucose 102 Micro: Microbiology 09/03/20 12:30 Swab (Method) Nasal Screen MRSA/MSSA - Final Radiography Diagnostic Testing: Radiology Impression Knee X-Ray 09/10/20 19:22 IMPRESSION: Status post right knee replacement. at 2048 Reported and signed by: Fritz Skaggs MD Electronically Signed: Fritz Skaggs MD at 20:46 EDT Tel , Service support , X-rays were reviewed and I agree Physical Exam Narrative Alert and oriented x3. No acute distress. Extremity Extremity Narrative: Left lower extremity: Dressing is clean dry and intact Sensations intact to light touch saphenous, sural, superficial peroneal, deep peroneal, and tibial distributions Motors intact EHL, DF, PF calves are soft and supple Assessment & Plan Assessment/Plan (1) Failed total knee, left: PLAN: Postop day 1 status post left revision total knee replacement polyethylene exchange and patella revision Pain control: Continue current regimen. Patient doing well with Tylenol and oxycodone. Requiring only Tylenol at this time. We did discuss she may have increased pain as the block wears off. DVT prophylaxis: Aspirin 81 mg twice daily Therapy: Weightbearing as tolerated, activity as tolerated, anterior precautions. Medical management: Medical comorbidities are well managed. Appreciate hospitalist service involvement in this patient. Laboratories: Hemoglobin stable Disposition: Patient is doing well this morning. We will plan on discharge home after therapy today. Patient can discontinue her dressing 5 days postoperatively. First physical therapy is scheduled for September 15. [facility] Office:
--- NOTE | 2020-09-11 07:00 | PCM.DC ---
Discharge Instructions Diet Discharge Diet: No restrictions Activity Discharge Activity: May Not Drive May shower in (days): 1 (With back to shower) May resume sexual activity in: 6-8 weeks Ice area for (Minutes): 20 (every hour while awake.) Weight Bearing Status: Weight bearing as tolerated Keep extremity elevated above heart level: Operative Extremity Additional Activity Instructions:: Wear elastic stockings for 2 weeks after your surgery. Dressing / Incision Call your doctor if your incision/area has: Continuous Slow Oozing, Sudden Increased Bleeding, Increased Pain/ Swelling, Increased Redness and Foul Smelling Discharge Call your doctor if you observe: Fever of 101 or Higher, Coldness, Increased Pain, Numbness or Tingling, Change in Color, Calf discomfort and Uncontrolled pain Change Dressing in: do not change dressing (and daily as needed.) Remove Dressing in: 5 days Additional Dressing/Incision Instructions:: If incision is clean dry and intact may leave the wound open to air and continue showering. If there is continued drainage continue daily dry dressing changes and keep incision clean dry and intact until there is no drainage. Follow Up Care Please Follow Up With: Anibal Tavares PA-C When: 09-24-2020 9:00 Test Results: Test results from this visit will be discussed in further detail at your follow-up appointment, if applicable. Discharge Plan Admission Admit Date/Time: 09/10/20 15:58 Attending Provider: Ambrosio Rowley Primary Care Provider: Maurice Hanks Consulting Providers: Jesus Lopez Discharge Orders/Prescriptions Prescriptions: New sennosides-docusate sodium [Stool Softener-Stimulant Laxat] 8.6-50 mg Tablet 2 tab PO BID Qty: 0 RF: 0 acetaminophen 500 mg Tablet 1,000 mg PO Q8 Qty: 0 RF: 0 meloxicam 7.5 mg Tablet 7.5 mg PO BID 30 Days Qty: 60 RF: 1 famotidine 20 mg Tablet 20 mg PO DAILY 30 Days Qty: 30 RF: 1 doxycycline monohydrate 100 mg Capsule 100 mg PO BID 7 Days Qty: 14 RF: 0 aspirin 81 mg Tablet,Chewable 81 mg PO BIDCM Qty: 0 RF: 0 alum-mag hydroxide-simeth [Mag-Al Plus Extra Strength] 400-400-40 mg/5 mL Suspension 30 ml PO Q6H PRN PRN (Reason: HEARTBURN) Qty: 0 RF: 0 oxycodone 5 mg Tablet 5 - 10 mg PO Q4H PRN PRN (Reason: Pain Score 4-10) 5 Days Qty: 30 RF: 0 Ensure Surgery 0.08-1.4 gram-kcal/mL Liquid 237 ml PO TIDCM Qty: 0 RF: 0 Continued clobetasol 0.05 % ointment 1 applic topical QHS Qty: 30 RF: 3 propranolol 20 MG tablet 20 mg PO QHS RF: 0 cholecalciferol (vitamin D3) [Vitamin D3] 1,000 UNIT capsule 1,000 unit PO DAILY RF: 0 multivitamin with folic acid [Thera] 1 TABLET tablet 1 tab PO DAILY RF: 0 calcium carbonate-vitamin D3 1 EACH tablet 1 ea PO DAILY RF: 0 gabapentin [Neurontin] 100 MG capsule 100 mg PO QHS RF: 0 methotrexate sodium 2.5 mg Tablet 12.5 mg PO MO RF: 0 Held vitamin E (dl, acetate) 400 UNITS capsule 400 units PO DAILY RF: 0 Hold Instructions: Resume on 09/24/20. cranberry extract 200 MG capsule 400 mg PO DAILY RF: 0 Hold Instructions: Resume on 09/24/20. aspirin 81 mg Tablet,Delayed Release (Dr/Ec) 81 mg PO DAILY RF: 0 Hold Instructions: Resume on 09/24/20. Referrals / Follow Up: Maurice Hanks MD [Primary Care Provider] - Disposition Discharge Orders: Discharge Patient (Routine); Ordered 09/11/20 Ordered By: Dr. Ambrosio Rowley
[2020-09-11 07:05] VITALS: BP 150/72; PULSE 56; RESP 16; TEMP 37
[2020-09-11 07:10] VITALS: PULSE 56; RESP 16
[2020-09-11] MEDS: Ensure Surgery 237 ML LIQUID PO ×2 (07:34→12:15)
[2020-09-11] MEDS: Calcium Carb/Vitamin D 1 TABLET Tablet PO (07:35)
[2020-09-11] MEDS: Aspirin 81 MG TAB.CHEW PO (07:35)
[2020-09-11] MEDS: Multivitamins,Ther W-Minerals Tablet 1 TABLET PO (07:35)
--- NOTE | 2020-09-11 08:43 | NURSING ---
pt refused help from SN to assist in hygiene. SN observed pt and she was capable of performing independent hygiene.
[2020-09-11] MEDS: Famotidine 20 MG Tablet PO (09:18)
[2020-09-11] MEDS: Doxycycline 100 MG CAPSULE PO (09:18)
--- NOTE | 2020-09-11 10:45 | CASEMGMT ---
SUNIL TSE Face to Face with patient for initial transition planning/care coordination assessment. RN CM introduced self and role at [facility] [place]. Patient sitting in chair, alert and oriented. Patient willing to participate in assessment and is able to answer all questions appropriately. Care providers, pharmacy, and demographics verified. Patient wishes to discharge home, and is setup with [facility] for outpatient therapy. Patient states she has no further needs or concerns at this time. CM to follow for discharge planning needs that may arise. PCP: Latonya Specialists: susan Rowley; RA Kiya, Jeanmarie, pain Preferred Pharmacy: [facility] Insurance: [employer], [employer] other Prescription Benefit: yes Living Will/HPOA: yes, Andrea Gary LNOK: , daughter Living Arrangements: patient lives with in a single story home with 2 steps to enter. Patient states she was independent at home prior to surgery Transportation: , daughter DME/HHC: Patient states she has shower chair, raised toilet seat, grab bars, and walker at home. Patient is setup with [facility] for outpatient therapy. Disposition Plan: Patient to discharge home with outpatient therapy, family support, and follow-up plans in place. Dana VU, RN, CM
--- NOTE | 2020-09-11 11:32 | PCM.PN.HOSP ---
Documented by User: Andrey SPAULDING 09/11/20 11:40 Subjective Subjective Patient is an 85-year-old female comfortably resting in a chair, alert and oriented x3. Denies chest pain, shortness of breath, palpitations, hemoptysis, fever, chills, N/V/D Objective Data Objective Data Vital Signs: Vital Signs Temp Pulse Resp BP Pulse Ox 98.6 F 56 L 16 150/72 H 98 09/11/20 07:05 09/11/20 07:10 09/11/20 07:10 09/11/20 07:05 09/11/20 05:13 Oxygen Flow Rate (L/min) 6 Oxygen Delivery Method Room Air Weight: 138 lb 14.259 oz Body Mass Index (BMI) 22.4 Intake & Output: Intake and Output for Last 24 Hours 09/09/20 09/10/20 09/11/20 23:59 23:59 23:59 Intake Total 3086.0 / 3486.0 1500 / 1500 Balance 3086.0 / 3486.0 1500 / 1500 Lab / Micro Data Result Diagrams: 09/11/20 05:54 09/11/20 05:54 Labs: Laboratory Results - last 24 hr 09/11/20 09/11/20 05:54 05:54 WBC 7.2 RBC 3.80 L Hgb 11.5 L Hct 35.5 L MCV 93.4 MCH 30.3 MCHC 32.4 RDW Std Deviation 45.3 H RDW Coeff of Jamil 13.2 Plt Count 180 MPV 10.9 Sodium 137 Potassium 3.8 Chloride 106 Carbon Dioxide 27.0 Anion Gap 4 L BUN 13 Creatinine 0.87 Estim Creat Clear Calc 43.45 Est GFR (MDRD) Af Amer 79 Est GFR (MDRD) Non-Af 66 BUN/Creatinine Ratio 15.0 Glucose 119 H Calcium 8.4 L Micro: Microbiology 09/10/20 Unknown Tissue - Knee Gram Stain - Final 09/10/20 Unknown Tissue - Knee Wound Culture - Preliminary No growth-Final to follow 09/10/20 Unknown Tissue - Knee Gram Stain - Final 09/10/20 Unknown Tissue - Knee Wound Culture - Preliminary No growth-Final to follow 09/10/20 Unknown Tissue - Knee Gram Stain - Final 09/10/20 Unknown Tissue - Knee Wound Culture - Preliminary No growth-Final to follow 09/03/20 12:30 Swab (Method) Nasal Screen MRSA/MSSA - Final Radiography Diagnostic Testing: Radiology Impression Knee X-Ray 09/10/20 19:22 IMPRESSION: Status post right knee replacement. at 2048 Reported and signed by: Fritz Skaggs MD Electronically Signed: Fritz Skaggs MD at 20:46 EDT Tel , Service support , Physical Exam Narrative See subjective. Const alert, oriented x3 and no apparent distress HEENT head/scalp atraumatic and moist oral mucous membranes Head and Scalp: normocephalic Eyes PERRL, EOMs intact bilaterally and conjunctivae normal Neck no lymphadenopathy, supple and no JVD Resp normal respiratory effort, no retractions, no use of accessory muscles and clear to auscultation bilaterally Cardio regular rate, regular rhythm, no murmurs and no JVD GI normal to inspection, nondistended, normoactive bowel sounds, soft to palpation, non-tender and non-distended Extremity normal to inspection Extremity Narrative: Left knee bandaged with appropriate bracing. Skin no rashes or lesions noted, no wounds, skin turgor normal and no jaundice Neuro CN's II-XII intact bilaterally Psych affect normal Assessment & Plan Assessment/Plan (1) HTN (hypertension): QUALIFIERS: Hypertension type: unspecified Qualified Code(s): I10 - Essential (primary) hypertension (2) Failed total knee, left: (3) Other acute postprocedural pain: PLAN: See subjective for patient presentation. This provider is seeing this patient on consult for the orthopedics department status post left knee and patella revision for instability and patellofemoral overstuffing. Patient to be discharged home today per orthopedics. 1) S/P left knee revision Management per orthopedics. Discharge home today, follow-up with orthopedics scheduled for 09/24/2020. 2) HTN Patient reports a history of a very erratic blood pressure that can be as high as 200 systolic and reports that it can drop very low quickly. Patient states it is related to autonomic dysfunction. Currently managed on propranolol. Recommend follow-up with primary care provider within the next 2 weeks. Patient seen by Andrey Smith PA-C, under the supervision of Dr. Stacy. Documented by User: Dr. Rojelio Stacy MD 09/11/20 12:27 Objective Data Lab / Micro Data Result Diagrams: 09/11/20 05:54 09/11/20 05:54 Charges/Coding Addendum Addendum: Dr. Stacy: I personally reviewed the chart and examined the patient, and agree with the above findings. 85-year-old female presents to the hospital for an elective left knee revision patellar component with polyethylene exchange. She underwent surgery on 09/10/2020. She is doing well and has worked well with therapy. Of note she does have very wildly fluctuating blood pressures this was secondary to her autonomic sympathetic dystrophy that she is being managed for as an outpatient. We will continue her propranolol. From medical standpoint she is okay for discharge Visit Charges OBSV E&M: 85017 Subsequent observation care L2
[2020-09-11 13:58] VITALS: BP 162/60; PULSE 84; RESP 24; TEMP 36.7
== END 2020-09-11 14:50 ==
LOC: MS3 15:59
PROVIDERS: Anesthesiology; Admitting Provider Specialist; PCP Family Medicine; Referring Provider Specialist; Visit Provider Family Medicine
PROC: (CPT 27486; principal; 2020-09-10 12:05)
DX: T84.84XA Pain due to internal orthopedic prosthetic devices, implants and grafts, initial encounter (principal); Y79.2 Prosthetic and other implants, materials and accessory orthopedic devices associated with adverse incidents; M06.9 Rheumatoid arthritis, unspecified; Z79.899 Other long term (current) drug therapy; Z79.82 Long term (current) use of aspirin; I10 Essential (primary) hypertension; T84.023A Instability of internal left knee prosthesis, initial encounter; Z87.19 Personal history of other diseases of the digestive system
CPT/HCPCS: 01402; 27486; 36415; 73560; 80048; 82962; 83735; 85027; 87015; 87070; 87075; 87081; 87102; 87116; 87176; 87205; 87206; 88305; 88311; 96361; 96365; 96366; 97161; 97166; 97530; 99218; 99251; C1776; J7120; G0378; G0379; G0463; J3475

== ENCOUNTER 2021-04-06 13:51 | Outpatient (CLI) | payer MEDICARE, OTHER, SELFPAY ==
--- NOTE | 2021-04-06 13:56 | CT_ITS ---
STUDY: CT SCAN LOWER EXTREMITY RIGHT REASON FOR EXAM: Female, 86 years old. KNEE PAIN.NAYELI protocol. RADIATION DOSAGE (If Supplied By Facility): CTDIvol = ( 16.63 ) mGy, DLP = ( 1097.10 ) mGycm. Individualized dose optimization techniques were used for this CT.? TECHNIQUE: Multiple axial tomographic images of the right hip joint, right knee joint and right ankle joint were obtained. Axial and coronal reconstructions was obtained as well. COMPARISON: None. FINDINGS: The patient is status post right total hip replacement. There is good alignment. No acute abnormality is seen. Imaging of the right knee joint was performed. Moderate degree of joint space narrowing involving the medial and lateral compartments of the knee joint with subchondral geodes. Imaging of the ankle joint was obtained. No significant abnormality is seen. CT/Extremity Lower without Contra IMPRESSION: Moderate degree of the joint space narrowing involving the medial and lateral compartments of knee joint. Subchondral geodes. Electronically Signed: Angel Zarate MD at 14:38 EST , Service support ,
== END 2021-04-06 23:59 | disposition home or self-care (01) ==
LOC: CT 13:53
PROVIDERS: PCP Family Medicine; Referring Provider Orthopaedic Surgery; Visit Provider Orthopaedic Surgery
DX: M17.11 Unilateral primary osteoarthritis, right knee (principal); G89.29 Other chronic pain
CPT/HCPCS: 73700

== ENCOUNTER 2021-04-20 14:59 | Observation (INO) | payer MEDICARE, OTHER, SELFPAY ==
--- NOTE | 2021-04-06 13:49 | EKG12_ITS ---
Test Reason : PREOP Blood Pressure : / mmHG Vent. Rate : 091 BPM Atrial Rate : 091 BPM P-R Int : 146 ms QRS Dur : 088 ms QT Int : 334 ms P-R-T Axes : 078 002 062 degrees QTc Int : 410 ms Normal sinus rhythm Normal ECG Confirmed by LOVE SARMIENTO, NIRU ([id number]), material expeditor CINDA RODRIGUEZ ([id number]) on 04/07/2021 11:31:56 AM Referred By: Yoni Canchola Confirmed By:NIRU ALEMAN MD
[2021-04-06 15:52] LABS: Anion Gap 5 (5-15); BUN 22 mg/dL (7-18); BUN/Creat Ratio 24.9 RATIO (10-20); Calcium,Total 9.2 mg/dL (8.5-10.1); Chloride 103 mmol/L (98-107); Creatinine, Serum 0.88 mg/dL (0.55-1.02); EST Glomerular Filtration Rate 64 mL/min (>60); Est Glom Filt Rate - Afr Amer 78 mL/min (>60); Glucose 91 mg/dL (74-106); Potassium 4.6 mmol/L (3.5-5.1); Sodium Level 138 mmol/L (136-145)
[2021-04-06 15:58] LABS: Magnesium 2.6 mg/dL (1.6-2.6)
--- NOTE | 2021-04-17 | KNEE_PTH ---
PATIENT: JOVANY LEPE LOC: MS3 U#:[id number] AGE/SX: 86/F ROOM: MS321 RE04/20/[address]: Dr. Yoni Canchola DO : 1935 BED: 1 DIS: 04/21/2021 SPEC #: [id number] RECD: 04/20/21 11:55 STATUS: RAMESH REHailee #: [id number] RAGHAV: 04/17/21 00:[address]: Yoni Canchola DEPT: SURGICAL PATHOLOGY RECD BY: Eduin Gerardo ENTERED: 04/20/21 12:44 SP TYPE: TOTAL KNEE OTHR DR: Dr. Maurice Hanks MD Tissues: Knee, NOS Procedures: Decalcification bone/plaque Surgery Specimen Level IV HEADER OPERATION: ERAS, total knee replacement robotic arm assist PRE-OP DIAGNOSIS: Osteoarthritis right knee TISSUE SUBMITTED: Debrided bone and tissue right knee MICROSCOPIC DIAGNOSIS Bone and tissue of right knee, total knee replacement: Consistent with degenerative joint disease. Mild synovial hyperplasia and focal calcifications of blood vessel marroquin. AM:nova 04/23/2021 MICROSCOPIC DESCRIPTION Slides are reviewed. GROSS DESCRIPTION Received is one container designated debrided bone and tissue right knee. The specimen consists of multiple fragments of valadez-yellow bone measuring in aggregate 10 x 8 x 3.5 cm. Also in the specimen container are multiple fragments of yellow-white soft tissue measuring in aggregate 9 x 8 x 3 cm. A number of bony fragments contain articular surfaces consistent with tibial plateau and femoral condyle and displaying prominent osteophyte formation and bone erosion. Elastic Assembler sections are submitted in two cassettes as follows: 1 - soft tissue, 2 - bone after decalcification. / SJ:nova 04/20/2021 TC:5 [facility] [place]: [id number], [id number]
[2021-04-20] VITALS (14 sets, daily range): BP systolic 154–218; BP diastolic 71–99; PULSE 77–92; RESP 16–18; TEMP 36.1–36.7; O2SAT 92–97; BMI 22.4; BMI 22.6
[2021-04-20] MEDS: Acetaminophen 500 MG Tablet 1000 MG PO ×3 (06:09→22:29)
[2021-04-20] MEDS: Gabapentin 600 MG Tablet PO (06:10)
[2021-04-20 06:11] LABS: Bedside Glucose 64 mg/dL (70-110)
[2021-04-20 06:36] LABS: Hematocrit 37.6 % (37-47); Mean Corp Hgb Conc 31.9 g/dL (32-36); Mean Corpuscular Hgb 29.3 pg (27.0-32.0); Mean Corpuscular Volume 91.9 fL (81-99); Mean Platelet Vol. 10.4 fl (6.2-12.0); Platelet Count 164 K/mm3 (150-450); RBC Distribution Width CV 13.4 % (11.6-14.6); Red Blood Count 4.09 M/mm3 (4.2-5.4); White Blood Count 4.9 K/mm3 (4.4-11.0)
[2021-04-20] MEDS: Cefazolin 2 GM in 0.9% Normal Saline 100 ML IV (07:56)
[2021-04-20] MEDS: Lactated Ringers 1,000 ML 125 ML IV ×3 (08:00→11:21)
[2021-04-20] MEDS: TXA 1000mg in NS100 100ml (IVPB at Incision) 660 MG IV (08:10)
[2021-04-20 08:12] LABS: Hemoglobin A1c 5.5 % (3.8-5.6)
[2021-04-20] MEDS: TXA 1000mg in NS100 100ml (IVPB at Closure) 660 MG IV (09:18)
--- NOTE | 2021-04-20 09:28 | OP.PCM_ITS ---
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 Findings: Stable knee with good patella tracking Specimen(s): Bony cuts Complications: No intraoperative complications Estimated Blood Loss: 30 cc IV Fluids: 1000 cc crystalloid Implants Used: 1. [employer] Triathlon CR cemented size 4 femur 2. [place] Triathlon size 4 tibia 3. 32 mm patella 4. 9 mm CS polyethylene Brief History Operative Indications: [ (86 y/o female) ] with history of [right ] knee osteoarthrosis with radiographic findings with loss of joint space, osteophyte formation and subchondral sclerosis. Failed conservative measures as mentioned in the H&P. Discussion of total knee arthroplasty as well as risk and benefits were discussed with the patient including but not limited to blood loss, DVTs, PEs, neurovascular damage, general risk of anesthesia including loss of life, and stiffness or instability were also discussed with the patient. Patient demonstrated understanding and was able to sign informed consent. Procedure: On the date of procedure, patient's [right ] lower extremity was marked in the preoperative area. The patient was then taken back to the operating room where that patient was placed on the table in the supine position. All bony prom inences were identified and well-padded. Anesthesia assumed control of the C- spine and airway throughout the remainder of the procedure. A tourniquet was placed on the [right ] upper thigh and the leg was prepped in a sterile fashion. The surgeon then scrubbed at this time. Upon reentering the room, the [right ] lower extremity was draped in a standard orthopedic fashion. A timeout was then called and everyone agreed upon the side, the site, the procedure to be performed, patient's identity and antibiotics given. Esmarch bandage was used to exsanguinate the extremity and the tourniquet was placed up to 250 mmHg with the knee in flexion. A midline skin incision was made and a sharp dissection was taken down through skin, subcutaneous tissue and fat. The standard medial parapatellar incision was made and the patella was subluxed laterally. An appropriate deep MCL release was done and the fat pad was resected. Our attention was then directed to the patella. The patella was everted and a flat resection was made. The knee was then flexed up and 2 femoral pins were placed inside the incision and 2 tibial pins were placed outside the incision in the medial tibia bicortically. Once this was completed, the 2 checkpoints in the femur and tibia were placed. Knee was then flexed up and the bony landmarks were registered. Once the was completed, the knee taken through range of motion and manually stressed allowing us to plan for an appropriate tibial cut. The robotic arm was brought into the field sterilely and checkpoint and saw were registered. Based on the patient's deformity, the tibial cut was made in [1 degree varus ]. At this time, the tensioner was then placed in the joint and ligament tension was checked at 90 degrees and full extension. Based on the patient's ligamentous tension, appropriate adjustments were made to the operative plan and ligament releases were done. Once we were happy with our operative plan with balanced flexion and extension gaps, our attention was directed to the femur. The robot was brought into the field sterilely and registered. Posterior condylar cuts, anterior chamfer cuts and anterior cuts were appropriately made for a [size 4 ] femur. When these were completed, the saws were switched out in the distal femoral and posterior chamfer cuts were made. Protecting the soft tissue throughout this time. A [size 4 ] base plate was selected. The knee was flexed to 90 degrees and soft tissues and posterior osteophytes were removed from the joint. 40 cc of the periarticular injection was injected into the posterior medial corner of the joint. The appropriate trials were then placed on the femur and tibia. A trial polyethylene was trialed to ensure proper balancing and stability of the knee. The appropriate tibial internal rotation was then marked with a bovie. Our attention was then directed to the patella. The lug holes were drilled and the patella trial was placed. Patellar tracking was checked and deemed appr opriate. Once we were happy, lug holes were drilled for the femur and trial components were removed. The tibia was subluxed and pinned into place and the keel was punched and drilled appropriately. Final components were verified and opened. The wound was copiously irrigated with normal saline. Cement was mixed under 3rd generation techniques and applied in sequence to the tibia, the femur and the patella after the bone was dried thoroughly. The components were impacted into place with the tibia, femur and finally the patella. The trial poly component was placed and the knee was placed in full extension. The tracking, alignment and balance were verified and a [9 mm CS ] polyethylene component was placed. Once the final components were placed an Irrisept lavage was performed and the wound was copiously irrigated with normal saline solution and the periarticular injection was given. the wound was closed in a layer-dougherty fashion using #1 vicryl interrupted sutures for the arthrotomy, 2-0 interrupted vicryl suture for the subcuticular layer and tessie for final skin closure. A sterile compressive dressing was then placed. The patient was then awakened from anesthesia, transferred to the [facility] and transferred to the PACU for recovery. My physician syrup mixer assistant was a vital part of this case. He was important in appropriate retraction during the case, and protection of soft tissues during bony cuts. His intimate knowledge of the case and my steps aided in safe and expedient completion of the procedure as well as appropriate position of the leg during the case. He was also vital in assisting with closure under my direct supervision. Due to the complexity of this case, robotic arm was used to assist in the surgery to improve accuracy and clinical outcomes. Post-op Plan: DVT ppx; ASA 81 mg BID, thigh high compression stockings Follow up: in office in 2 weeks for wound check PT: to start POD #0 at hospital, outpatient PT should be arranged. Preoperative antibiotic: Ancef 2 grams IV Yoni Canchola DO Surgeon: Yoni Canchola checker and packer: Karan Singh Type of Anesthesia: General/Regional Anesthesiologist: Morro Jacobo Specimen's removed: bone Estimated Blood Loss (mL): 30 cc Fluids Replaced: 1000 cc crystalloid Admit VTE Documentation VTE Present on Admission: No VTE Mechan Device Prophylaxis: SCD's and Knee High LIZZETTE Hose VTE Pharm Prophylaxis ordered?: Yes
--- NOTE | 2021-04-20 10:05 | SUR.PHASEI ---
Anesthesia aware of pt BP. pt has hx of autonomic dysfunction with BP fluctuating.
--- NOTE | 2021-04-20 10:30 | RAD_ITS ---
STUDY: X-RAY - RIGHT KNEE REASON FOR EXAM: Female, 86 years old. Post op -- AP and Lateral xray of operative knee in PACU TECHNIQUE: 2 view(s) of the knee. COMPARISON: None. FINDINGS: Normal visualized distal femur. Normal visualized proximal tibia and fibula. Normal proximal tibiofibular articulation. The patient is status post total knee replacement. There is good alignment. Postoperative soft tissue changes. RAD/Knee 1 or 2 Views IMPRESSION: Status post total knee replacement. There is good alignment. Postoperative soft tissue changes. Electronically Signed: Angel Zarate MD at 10:53 EST , Service support ,
--- NOTE | 2021-04-20 12:15 | PCS.PANDOC ---
PANDEMIC DOCUMENTATION INITIATED: Date: 11/17/2020 Time: 190
[2021-04-20] MEDS: Ondansetron 4 MG/2 ML Vial IV (12:45)
[2021-04-20] MEDS: 0.9% Saline Lock 10 ML Syringe IV (12:45)
[2021-04-20] MEDS: proMETHazine 25 MG/ML Syringe 12.5 MG IM (14:06)
[2021-04-20] MEDS: Methotrexate 2.5 MG Tablet 12.5 MG PO (14:18)
--- NOTE | 2021-04-20 15:20 | CASEMGMT ---
RN CM AGRICULTURAL EXTENSION AGENT CM to room to meet with patient for initial transition planning/care coordination assessment. RN DEDRICK introduced self and role at [facility]. Pt voices understanding and consents to assessment at this time. Pt resting in bed in no distress at this time. DaughterMirtha, @ bedside. Pt is A/O at this time and answers all questions appropriately. Care providers, pharmacy, and demographics verified/updated at this time. PCP: Dr Hanks Specialists: Dr Canchola-jeevan Preferred [facility]acy: [facility] Insurance: [employer], other commercial Prescription Benefit: No prescription coverage Living Will/HPOA: Has both LW and HPOA, who is her , Andrea LNOK: , Andrea. DaughterMirtha Living Arrangements: Lives w/her in one-story home w/2 steps to enter. Denies difficulty w/stairs. Independent w/ADL's and IADL's. Transportation: Pt drives. Family can assist DME: States has the following DME available to use, but does not use @ baseline. Shower chair, Walker Pt states no need for further DME at this time. HHC/SNF: No hx of either. States has had surgery on both hips and lt knee and has always done OP therapy post-op. Pt wishes to do OP therapy @ discharge. Has appt scheduled [facility] 04/24/21 @ 0900. Pt is aware. Pt wishes to return home and states has no concerns with going home at time of discharge. CM to follow for any discharge planning/needs. Pt voices no concerns/needs at this time. Advised pt to ask for CM if any questions/concerns/needs arise. Voices understanding. PLAN: Home w/OP therapy. Chan VU RN, CM
[2021-04-20] MEDS: Cefazolin 1 GM/50 ML BAG IV ×2 (16:18→22:30)
[2021-04-20] MEDS: Senna/Docusate Sodium 1 Tablet 2 TABLET PO (19:45)
[2021-04-20] MEDS: Propranolol 10 MG Tablet 20 MG PO (19:45)
[2021-04-20] MEDS: Gabapentin 100 MG Capsule PO (19:45)
[2021-04-20] MEDS: Aspirin 81 MG TAB.CHEW PO (19:45)
[2021-04-20] MEDS: oxyCODONE 5 MG Tablet PO (19:45)
[2021-04-20] MEDS: cycloBENZAPRine HCl 10 MG Tablet PO (20:25)
[2021-04-21 00:57] VITALS: BP 169/71; PULSE 94; RESP 16; TEMP 37.1; O2SAT 99
[2021-04-21] MEDS: oxyCODONE 5 MG Tablet PO ×4 (01:04→09:59)
[2021-04-21 04:52] VITALS: BP 149/59; PULSE 83; RESP 16; TEMP 37.2; O2SAT 96
[2021-04-21] MEDS: Acetaminophen 500 MG Tablet 1000 MG PO ×2 (05:02→13:12)
[2021-04-21] MEDS: cycloBENZAPRine HCl 10 MG Tablet PO ×2 (05:03→13:01)
[2021-04-21 06:27] LABS: Hematocrit 32.2 % (37-47); Hemoglobin 10.6 g/dL (12.0-15.0); Mean Corp Hgb Conc 32.9 g/dL (32-36); Mean Corpuscular Hgb 30.6 pg (27.0-32.0); Mean Corpuscular Volume 93.1 fL (81-99); Mean Platelet Vol. 10.7 fl (6.2-12.0); Platelet Count 125 K/mm3 (150-450); RBC Distribution Width CV 13.6 % (11.6-14.6); RBC Distribution Width SD 45.9 fl (35.1-43.9); Red Blood Count 3.46 M/mm3 (4.2-5.4); White Blood Count 6.4 K/mm3 (4.4-11.0)
[2021-04-21 06:40] LABS: Anion Gap 3 (5-15); BUN 19 mg/dL (7-18); BUN/Creat Ratio 24.4 RATIO (10-20); Calcium,Total 8.1 mg/dL (8.5-10.1); Chloride 106 mmol/L (98-107); Creatinine, Serum 0.78 mg/dL (0.55-1.02); EST Glomerular Filtration Rate 74 mL/min (>60); Est Glom Filt Rate - Afr Amer 90 mL/min (>60); Glucose 106 mg/dL (74-106); Potassium 4.2 mmol/L (3.5-5.1); Sodium Level 137 mmol/L (136-145)
[2021-04-21] MEDS: Calcium Carb/Vitamin D 1 TABLET Tablet PO (07:36)
[2021-04-21] MEDS: Senna/Docusate Sodium 1 Tablet 2 TABLET PO (07:36)
[2021-04-21] MEDS: Multivitamins,Ther W-Minerals Tablet 1 TABLET PO (07:36)
[2021-04-21] MEDS: Vitamin E 400 UNITS Capsule PO (07:37)
[2021-04-21] MEDS: Cholecalciferol (VIT D3) 25 MCG TABLET (1,000 UNITS) PO (07:37)
[2021-04-21] MEDS: Aspirin 81 MG TAB.CHEW PO (07:37)
--- NOTE | 2021-04-21 07:49 | PN.ORTHO_ITS ---
Subjective Subjective Patient sitting up in bed, states pain has been well managed. Patient states she did have some spasms in her leg. Those have been resolved with the muscle relaxer. Patient denies chest pain, shortness of breath, calf pain, nausea or vomiting. Patient states she is ready for discharge home and continue with outp atient therapy. Objective Data Objective Data Vital Signs: Vital Signs Temp Pulse Resp BP Pulse Ox 98.9 F 83 16 149/59 H 96 04/21/21 04:52 04/21/21 04:52 04/21/21 04:52 04/21/21 04:52 04/21/21 04:52 Oxygen Flow Rate (L/min) 2 Oxygen Delivery Method Room Air Weight: 63.503 kg Body Mass Index (BMI) 22.6 Intake & Output: Intake and Output for Last 24 Hours 04/19/21 04/20/21 04/21/21 23:59 23:59 23:59 Intake Total 3533.5 / 3533.5 600 / 600 Output Total 130 / 130 Balance 3403.5 / 3403.5 600 / 600 Lab / Micro Data Result Diagrams: 04/21/21 05:58 04/21/21 05:58 Labs: Laboratory Results - last 24 hr 04/20/21 06:25: Hemoglobin A1c 5.5 04/21/21 05:58: WBC 6.4, RBC 3.46 L, Hgb 10.6 L, Hct 32.2 L, MCV 93.1, MCH 30.6, MCHC 32.9, RDW Std Deviation 45.9 H, RDW Coeff of Jamil 13.6, Plt Count 125 L, MPV 10.7 04/21/21 05:58: Sodium 137, Potassium 4.2, Chloride 106, Carbon Dioxide 28.0, Anion Gap 3 L, BUN 19 H, Creatinine 0.78, Estim Creat Clear Calc 37.10, Est GFR (MDRD) Af Amer 90, Est GFR (MDRD) Non-Af 74, BUN/Creatinine Ratio 24.4 H, Gluco se 106, Calcium 8.1 L Micro: Microbiology 04/06/21 14:20 Swab (Method) Nasal Screen MRSA/MSSA - Final Radiography Diagnostic Testing: Radiology Impression Knee X-Ray 04/20/21 10:30 IMPRESSION: Status post total knee replacement. There is good alignment. Postoperative soft tissue changes. Electronically Signed: Angel Zarate MD at 10:53 EST , Service support , Physical Exam Const alert and oriented x3 Eyes PERRL Neuro CN's II-XII intact bilaterally Psych mental status grossly normal and affect normal Assessment & Plan Assessment/Plan (1) Status post total right knee replacement using cement: PLAN: 1. Continue all pain medications as prescribed 2. Aspirin 81 mg 1 p.o. every 12 hours x30 days for postop DVT prophylaxis 3. Discharge home today continue outpatient physical therapy [facility] 4. Encourage incentive spirometry 5. Patient has all discharged medications
--- NOTE | 2021-04-21 07:52 | EX.PCM.DISCH ---
Discharge Instructions Diet Discharge Diet: No restrictions Activity Discharge Activity: May Not Drive, May Shower and Use Walker May shower in (days): 3 May resume sexual activity in: No Restrictions Ice area for (Minutes): 30 (every hour while awake.) Weight Bearing Status: Weight bearing as tolerated Keep extremity elevated above heart level: Operative Extremity Dressing / Incision Call your doctor if your incision/area has: Continuous Slow Oozing, Sudden Increased Bleeding, Increased Pain/ Swelling, Increased Redness and Foul Smelling Discharge Call your doctor if you observe: Fever of 101 or Higher, Coldness, Increased Pain, Numbness or Tingling, Change in Color, Shortness of breath, Calf discomfort and Uncontrolled pain Change Dressing in: leave in place till F/U Remove Dressing in: leave in place till F/U Follow Up Care Please Follow Up With: Karan Singh PA-C When: Please call [phone] to schedule a follow up appointment. Test Results: Test results from this visit will be discussed in further detail at your follow-up appointment, if applicable. Discharge Plan Admission Admit Date/Time: 04/20/21 14:59 Primary Reason for Your Visit: Right total knee replacement Attending Provider: Yoni Canchola Primary Care Provider: Maurice Hanks Discharge Orders/Prescriptions Prescriptions: New acetaminophen 500 mg Tablet 1,000 mg PO Q8 Qty: 90 RF: 0 aspirin 81 mg Tablet,Chewable 81 mg PO BID 30 Days Qty: 60 RF: 0 cyclobenzaprine 10 mg Tablet 10 mg PO TID PRN PRN (Reason: MUSCLE SPASMS) Qty: 30 RF: 0 Continued propranolol 20 MG tablet 20 mg PO QHS RF: 0 cholecalciferol (vitamin D3) [Vitamin D3] 1,000 UNIT capsule 1,000 unit PO DAILY RF: 0 vitamin E (dl, acetate) 400 UNITS capsule 400 units PO DAILY RF: 0 Hold Instructions: Resume on 09/24/20. cranberry extract 200 MG capsule 400 mg PO DAILY RF: 0 Hold Instructions: Resume on 09/24/20. multivitamin with folic acid [Thera] 1 TABLET tablet 1 tab PO DAILY RF: 0 calcium carbonate-vitamin D3 1 EACH tablet 1 ea PO DAILY RF: 0 gabapentin [Neurontin] 100 MG capsule 100 mg PO QHS RF: 0 aspirin 81 mg Tablet,Delayed Release (Dr/Ec) 81 mg PO DAILY RF: 0 Hold Instructions: Resume on 09/24/20. Held methotrexate sodium 2.5 mg Tablet 12.5 mg PO MO RF: 0 Hold Instructions: Resume on 05/25/21. Referrals / Follow Up: Maurice Hanks MD [Primary Care Provider] - Disposition Disposition (needs filled in before D/C Order can be placed): Home, Self Care
[2021-04-21 08:19] VITALS: BP 132/57; PULSE 82; RESP 18; TEMP 36.6; O2SAT 93
[2021-04-21 11:56] VITALS: BP 155/65; PULSE 93; RESP 18; TEMP 37.3; O2SAT 93
== END 2021-04-21 13:23 | disposition home or self-care (01) ==
LOC: SDC 15:30 → MS3 15:30
PROVIDERS: Anesthesiology; Admitting Provider Orthopaedic Surgery; PCP Family Medicine; Referring Provider Orthopaedic Surgery; Visit Provider Orthopaedic Surgery
PROC: 0SRC0JZ Replacement of Right Knee Joint with Synthetic Substitute, Open Approach (ICD-10-PCS; CPT 27447; principal; 2021-04-20 07:00)
DX: M17.11 Unilateral primary osteoarthritis, right knee (principal); Z79.82 Long term (current) use of aspirin; Z79.899 Other long term (current) drug therapy; I10 Essential (primary) hypertension; L90.0 Lichen sclerosus et atrophicus; M81.0 Age-related osteoporosis without current pathological fracture; K21.9 Gastro-esophageal reflux disease without esophagitis; G25.81 Restless legs syndrome
CPT/HCPCS: 27447; S2900; 64448; 36415; 73560; 80048; 82962; 83036; 83735; 85027; 87081; 88305; 88311; 93005; 96365; 96366; 96372; 96375; 97110; 97116; 97162; 97166; 99218; 99251; C1776; J7120; A4216; G0378; G0463; J2405; J3475; J8610

== ENCOUNTER 2022-02-20 10:52 | Emergency (ER) | payer MEDICARE, OTHER, SELFPAY ==
[2022-02-20] VITALS (8 sets, daily range): BP systolic 128–167; BP diastolic 70–117; PULSE 70–162; RESP 12–19; TEMP 36.6; O2SAT 96–100; BMI 21.1
--- NOTE | 2022-02-20 10:56 | ED.RN ---
dr correa notified of pt sx. to see in room
--- NOTE | 2022-02-20 11:05 | RAD_ITS ---
STUDY: X-RAY CHEST REASON FOR EXAM: Female, 87 years old. Chest pain TECHNIQUE: Single frontal view of the chest. COMPARISON: None. FINDINGS: The lungs are clear and expanded. There is no demonstrated pleural abnormality. Normal size heart. Normal mediastinum and halle. Normal visualized pulmonary arteries. There is atherosclerotic calcification of the aortic arch . Normal visualized thoracic spine. Normal visualized ribs, clavicles, and shoulders. There is no demonstrated abnormality of the visualized soft tissue structures of the upper abdomen. RAD/Chest 1 View (Portable) IMPRESSION: No acute cardiopulmonary process. Electronically Signed: Cassie Lebron MD at 11:59 EST ,
--- NOTE | 2022-02-20 11:05 | EKG12_ITS ---
Test Reason : PALPS Blood Pressure : / mmHG Vent. Rate : 125 BPM Atrial Rate : 147 BPM P-R Int : 000 ms QRS Dur : 082 ms QT Int : 304 ms P-R-T Axes : 000 027 054 degrees QTc Int : 438 ms Atrial fibrillation Nonspecific ST and T wave abnormality Abnormal ECG Confirmed by SIOMARA SARMIENTO, THERESE ([id number]), index editor KWADWO THOMAS ([id number]) on 02/23/2022 8:02:11 AM Referred By: HIEN Confirmed By:THERESE STRINGER MD
--- NOTE | 2022-02-20 11:05 | CT_ITS ---
STUDY: CT BRAIN WITHOUT CONTRAST REASON FOR EXAM: Female, 87 years old. Vertigo RADIATION DOSAGE (If Supplied By Facility): CTDIvol = ( 44.99 ) mGy, DLP = ( 745.49 ) mGycm TECHNIQUE: Transaxial CT imaging of the brain was performed without administration of intravenous contrast material. Individualized dose optimization techniques were used for this CT. COMPARISON: 02/18/2020 FINDINGS: Normal soft tissue structures. Normal calvarium. There is mild cerebral atrophy with widening of the extra-axial spaces and ventricular dilatation. Normal white matter tracts of the cerebral hemispheres. Normal basal ganglia and thalami. Normal brainstem. There is mild cerebellar atrophy. There are peripheral calcifications of the visualized internal carotid arteries. There is no intracranial hemorrhage. There are no findings of an acute ischemic infarction. There is minimal opacification of the visualized maxillary sinuses consistent with a history of sinusitis. CT/Brain/Head without Contrast IMPRESSION: Chronic involutional changes of the brain. Atherosclerosis. Electronically Signed: Cassie Lebron MD at 11:44 EST ,
--- NOTE | 2022-02-20 11:13 | EDS_ITS ---
HPI History of Present Illness Chief Complaint: Dizziness Narrative Narrative: 87-year-old female presenting with lightheadedness. She states this started this morning upon awakening. Last night she felt well. She states she has had a stressful couple of weeks taking care of her [id number] and recently had to put her in a assisted. It is she states that last night she laid down and did not have any trouble resting. When she woke up she was very lightheaded and having trouble walking. She states she was using the marroquin to guide her around. She thought this would go away and it did not. She also notes that she is having palpitations. She denies chest pain or pressure. She states she does have an autonomic dysfunction which can make her heart rate elevated but it is usually around 80. She states she does feel little bit dyspneic with this. No coughing, fever, chills. She denies nausea or vomiting. She states that positional changes do not affect it and it is constant. [facility] Medical History Acute gastritis without hemorrhage Admission for repair of scarred tissue Arthritis Arthritis of left knee Autonomic dysfunction Back pain Benign neoplasm of scalp and skin of neck Cancer Diverticulosis Essential hypertension Family history of colon cancer Generalized headaches GERD (gastroesophageal reflux disease) Heartburn History of pain when walking History of stress test HTN (hypertension) Hx of echocardiogram Hypertension Inflammatory polyarthropathy Non-smoker Personal history of colonic polyps Restless legs Skin cancer of trunk Syncope Wears dentures Wears glasses Home Medications calcium carbonate 600 mg-vitamin D3 20 mcg (800 unit) tablet 1 ea PO DAILY SUPP LEMENT 04/09/16 [History Last Taken Unknown] cholecalciferol (vitamin D3) 25 mcg (1,000 unit) capsule (Vitamin D3) 1,000 unit PO DAILY SUPPLEMENT 04/09/16 [History Last Taken Unknown] cranberry extract 200 mg capsule 400 mg PO DAILY SUPPLEMENT 04/09/16 [History Last Taken Unknown] multivitamin with folic acid 400 mcg tablet (Thera) 1 tab PO DAILY SUPPLEMENT 04/09/16 [History Last Taken Unknown] propranolol 20 mg tablet 20 mg PO QHS BP 04/09/16 [History Last Taken 10/10/17 09:00 20 MG] vitamin E (dl, acetate) 180 mg (400 unit) capsule 400 units PO DAILY SUPPLEMENT 04/09/16 [History Last Taken Unknown] gabapentin 100 mg capsule (Neurontin) 100 mg PO QHS RESTLESS LEG 09/29/17 [History Last Taken Unknown] aspirin 81 mg tablet,delayed release 81 mg PO DAILY 08/27/20 [History Last Taken 04/15/21] methotrexate sodium 2.5 mg tablet 12.5 mg PO MO 08/27/20 [History Last Taken Unknown] acetaminophen 500 mg tablet 1,000 mg PO Q8 #90 tabs 04/21/21 [Rx Last Taken Unknown] aspirin 81 mg chewable tablet 81 mg PO BID 30 days #60 tabs 04/21/21 [Rx Last Taken Unknown] cyclobenzaprine 10 mg tablet 10 mg PO TID PRN PRN MUSCLE SPASMS #30 tabs 04/21/21 [Rx Last Taken Unknown] clobetasol 0.05 % topical ointment 1 applic topical QHS #30 grams 02/01/22 [Rx Last Taken Unknown] apixaban 5 mg tablet (Eliquis) 5 mg PO BID #74 tabs 02/20/22 [Rx Last Taken Unknown] propranolol 20 mg tablet 20 mg PO BID #60 tabs 02/20/22 [Rx Last Taken Unknown] Allergy/AdvReac Type Severity Reaction Status Date / Time Sulfa (Sulfonamide Allergy Rash Verified 02/20/22 10:57 Antibiotics) lisinopril AdvReac Intermediate Other Verified 02/20/22 10:57 CRYSTAL LIGHT LEMONADE Allergy Swelling Uncoded 02/20/22 10:57 Family History Mother Cancer kidney COPD (chronic obstructive pulmonary disease) Father Heart disease Colon cancer Cancer prostate Hypertension CVA (cerebral vascular accident) Brother Cancer esophagus CVA (cerebral vascular accident) Surgical History H/O dilation and curettage History of bunionectomy History of colonoscopy History of esophagogastroduodenoscopy (EGD) History of hernia repair History of repair of rotator cuff History of total left knee replacement History of total right hip replacement Hx of total knee arthroplasty Social History Smoking Status: Never smoker second hand exposure: No alcohol intake: never substance use type: does not use what type of physical activity do you participate in: none seatbelt use: always do you feel safe at home: Yes additional social history: [place]- 68 years on 12/23/20 ROS ROS ED Constitutional Constitutional ED: Denies chills or fever(s) Eyes Eyes: Denies change in vision ENT ENT ED: Denies rhinorrhea or sore throat Cardiovascular Cardiovascular: Reports palpitations, racing heartbeat and other Details: Lightheadedness Respiratory/Chest Respiratory/Chest: Reports dyspnea; Denies cough Gastrointestinal Gastrointestinal: Denies abdominal pain, nausea or vomiting Genitourinary Genitourinary ED: Denies dysuria or hematuria Musculoskeletal Musculoskeletal: Denies arthralgias or back pain Integumentary Denies abscess Neurologic Neurologic: Reports headache(s); Denies paresthesias EXAM Physical Exam Const Vital Signs: 02/20/22 10:52 02/20/22 11:11 02/20/22 11:12 Temperature 97.8 F Temperature Source Temporal Pulse Rate 90 153 H Respiratory Rate 18 12 Respiratory Effort Short of Breath Respiratory Pattern Normal Blood Pressure 165/117 H 160/106 H Blood Pressure Mean 133 124 Pulse Ox 100 100 Oxygen Delivery Method Room Air Room Air 02/20/22 11:30 02/20/22 11:45 02/20/22 11:52 Temperature Temperature Source Pulse Rate 162 H 130 H Respiratory Rate 19 H Respiratory Effort Respiratory Pattern Blood Pressure 128/81 H Blood Pressure Mean 96 Pulse Ox 96 Oxygen Delivery Method Room Air Room Air 02/20/22 11:53 02/20/22 11:54 02/20/22 13:18 Temperature Temperature Source Pulse Rate 95 93 82 Respiratory Rate 14 Respiratory Effort Respiratory Pattern Blood Pressure 130/82 H Blood Pressure Mean 98 Pulse Ox 96 Oxygen Delivery Method Positive well nourished General Appearance ED: NAD; Negative for pallor HEENT Reports moist mucous membranes Negative for trauma Eyes PERRL and EOMs intact bilaterally Eyes Narrative: Negative [place]-Hallpike. General Eye ED: Negative for pale conjunctiva or scleral icterus Neck no lymphadenopathy and supple Chest Wall inspection of chest normal Resp normal respiratory effort and clear to auscultation bilaterally Auscultation: Negative for rales, rhonchi or wheezes Cardio Rate: tachycardic Rhythm: abnormal rhythm irregularly irregular GI normal to inspection, nondistended, normoactive bowel sounds Extremity normal to inspection General Extremety ED: Yes edema General Extremity: edema Neuro oriented x3, CN's II-XII intact bilaterally and no sensory deficits noted Sensorium / Orientation: alert Coordination / Balance: [id number] test normal and gdtn-xi-[id number] test normal Speech: speech normal Motor Exam: strength 5/5 throughout, no pronator drift, no tremor, no fasciculations and no movement abnormalities noted Psych Mood & Affect: anxious Skin no rashes or lesions noted and no wounds General Skin Exam: Negative for jaundice or pallor MDM MDM MDM Narrative Medical decision making narrative: Patient presenting with lightheadedness. She is also experiencing palpitations. On exam she has a negative [place]-Hallpike. She has no focal neurologic deficits or lateralizing signs or symptoms. She is alert and awake and keenly responsive. Heart rate noted to be 153. EKG was obtained and on my interpretation is atrial fibrillation with a ventricular rate of 125 bpm. Patiently medicated with Cardizem and a liter of normal saline. CBC within normal limits. PT/INR normal. D-dimer 0.59 and therefore a digestible and is negative. Creatinine 1.02, electrolytes normal. GFR 54. Initial high- sensitivity troponin 11. CT brain was obtained and is negative for acute intercranial findings. Chest x-ray my interpretation shows no acute cardiopulmonary process and radiologist agree. Patient reevaluated and feels much better. Her heart rate is now in the 70s. Repeat EKG is normal sinus rhythm with a ventricular rate of 81 bpm PACs my interpretation. Delta troponin came back at 11. I spoke with Dr. White regarding the patient. He recommended increasing her 20 mg propranolol once a day to twice a day. She will be started on Eliquis as well. Patient is very knowledgeable on the use of blood thinners as her son and her both have A. fib. Return precautions were discussed. Dr. White will follow up with her next week. Impression: 1. New onset atrial fibrillation 2. Lightheadedness 3. Palpitations Lab Data Attestation: I reviewed the patient's lab results. Labs: Laboratory Results - last 24 hr 02/20/22 02/20/22 02/20/22 11:02 11:02 11:02 WBC 6.7 RBC 4.31 Hgb 13.2 Hct 41.3 MCV 95.8 MCH 30.6 MCHC 32.0 RDW Std Deviation 47.3 H RDW Coeff of Jamil 13.5 Plt Count 225 MPV 10.6 Immature Gran % (Auto) 0.300 Neut % (Auto) 67.8 Lymph % (Auto) 21.0 Lewis % (Auto) 8.4 Eos % (Auto) 1.9 Baso % (Auto) 0.6 Absolute Neuts (auto) 4.5 Absolute Lymphs (auto) 1.41 Nucleated RBC % 0 PT 11.9 INR 0.9 D-Dimer Quant (PE/DVT) 0.59 H* Sodium 141 Potassium 3.5 Chloride 105 Carbon Dioxide 28.0 Anion Gap 8 BUN 10 Creatinine 1.02 Estim Creat Clear Calc 35.69 Est GFR (MDRD) Af Amer 66 Est GFR (MDRD) Non-Af 54 L BUN/Creatinine Ratio 9.8 L Glucose 99 Calcium 9.4 Troponin I High Sens 11 02/20/22 13:45 WBC RBC Hgb Hct MCV MCH MCHC RDW Std Deviation RDW Coeff of Jamil Plt Count MPV Immature Gran % (Auto) Neut % (Auto) Lymph % (Auto) Lewis % (Auto) Eos % (Auto) Baso % (Auto) Absolute Neuts (auto) Absolute Lymphs (auto) Nucleated RBC % PT INR D-Dimer Quant (PE/DVT) Sodium Potassium Chloride Carbon Dioxide Anion Gap BUN Creatinine Estim Creat Clear Calc Est GFR (MDRD) Af Amer Est GFR (MDRD) Non-Af BUN/Creatinine Ratio Glucose Calcium Troponin I High Sens 11 Radiography Diagnostic Testing: Clinical Impression(s) from Imaging Studies Brain CT 02/20/22 11:05 IMPRESSION: Chronic involutional changes of the brain. Atherosclerosis. Electronically Signed: Cassie Lebron MD at 11:44 EST , Chest X-Ray 02/20/22 11:05 IMPRESSION: No acute cardiopulmonary process. Electronically Signed: Cassie Lebron MD at 11:59 EST , Discharge Plan Triage Chief Complaint: Dizziness ED Provider: Norman Boateng Dx/Rx/DC Orders Instructions: AFib Preventing Stroke, ED AFIB Prescriptions: New propranolol 20 mg tablet 20 mg PO BID Qty: 60 0RF Eliquis 5 mg tablet 5 mg PO BID Qty: 74 0RF Rx Instructions: 10 mg twice a day for the first week. Then 5 mg twice a day. No Action propranolol 20 MG tablet 20 mg PO QHS cholecalciferol (vitamin D3) [Vitamin D3] 1,000 UNIT capsule 1,000 unit PO DAILY vitamin E (dl, acetate) 400 UNITS capsule 400 units PO DAILY Hold Instructions: Resume on 09/24/20. cranberry extract 200 MG capsule 400 mg PO DAILY Hold Instructions: Resume on 09/24/20. multivitamin with folic acid [Thera] 1 TABLET tablet 1 tab PO DAILY calcium carbonate-vitamin D3 1 EACH tablet 1 ea PO DAILY gabapentin [Neurontin] 100 MG capsule 100 mg PO QHS aspirin 81 mg Tablet,Delayed Release (Dr/Ec) 81 mg PO DAILY Hold Instructions: Resume on 09/24/20. methotrexate sodium 2.5 mg Tablet 12.5 mg PO MO Hold Instructions: Resume on 05/25/21. acetaminophen 500 mg Tablet 1,000 mg PO Q8 Qty: 90 0RF aspirin 81 mg Tablet,Chewable 81 mg PO BID 30 Days Qty: 60 0RF cyclobenzaprine 10 mg Tablet 10 mg PO TID PRN PRN (Reason: MUSCLE SPASMS) Qty: 30 0RF clobetasol 0.05 % ointment 1 applic topical QHS Qty: 30 3RF Rx Instructions: apply thin layer; massage gently into affected area 1-2x weekly Primary Care Provider: Maurice Hanks Referrals: Evi White MD [Med Staff - Active Staff] - As soon as possible Maurice Hanks MD [Primary Care Provider] - Disposition Disposition: Home, Self Care
[2022-02-20 11:46] LABS: Absolute Lymphocyte Count 1.41 X10^3/uL (0.83-4.51); Absolute Neutrophil Count 4.5 X10^3/uL (2.0-7.7); Basophil# 0.04 X10^3/uL; Basophil% 0.6 % (0-1); Eosinophil# 0.13 X10^3/uL; Eosinophils% 1.9 % (0-5); Hematocrit 41.3 % (37-47); Hemoglobin 13.2 g/dL (12.0-15.0); Lymphocyte # 1.41 X10^3/ul (0.83-4.51); Mean Corpuscular Hgb 30.6 pg (27.0-32.0); Mean Corpuscular Volume 95.8 fL (81-99); Mean Platelet Vol. 10.6 fl (6.2-12.0); Monocyte# 0.56 X10^3/uL; Monocyte% 8.4 % (0-10); NRBC Flagged by Analyzer 0 % (0-5); Neutrophil # 4.54 X10^3/uL (2.7-7.7); Neutrophil % 67.8 % (47-70); Platelet Count 225 K/mm3 (150-450); RBC Distribution Width CV 13.5 % (11.6-14.6); RBC Distribution Width SD 47.3 fl (35.1-43.9); Red Blood Count 4.31 M/mm3 (4.2-5.4); White Blood Count 6.7 K/mm3 (4.4-11.0)
[2022-02-20] MEDS: 0.9% Normal Saline 1,000 ML 999 ML IV (11:51)
[2022-02-20] MEDS: dilTIAZem 25 MG/5 ML Vial 20 MG IV BOLUS (11:51)
[2022-02-20 12:03] LABS: International Normalized Ratio 0.9; Prothrombin Time (Protime)PT. 11.9 SECONDS (11.7-14.9)
[2022-02-20 12:04] LABS: Anion Gap 8 (5-15); BUN 10 mg/dL (7-18); BUN/Creat Ratio 9.8 RATIO (10-20); Calcium,Total 9.4 mg/dL (8.5-10.1); Chloride 105 mmol/L (98-107); Creatinine, Serum 1.02 mg/dL (0.55-1.02); EST Glomerular Filtration Rate 54 mL/min (>60); Est Glom Filt Rate - Afr Amer 66 mL/min (>60); Estimated Creatinine Clearance 35.69 ml/min; Glucose 99 mg/dL (74-106); Potassium 3.5 mmol/L (3.5-5.1); Sodium Level 141 mmol/L (136-145); Troponin-I HS (w/2H Reflex) 11 pg/mL (3.0-54.0)
[2022-02-20 12:14] LABS: D-Dimer Quantitative (DVT/PE) 0.59 FEU/ug/m (0.27-0.49)
--- NOTE | 2022-02-20 12:48 | EKG12_ITS ---
Test Reason : REPEAT Blood Pressure : / mmHG Vent. Rate : 081 BPM Atrial Rate : 081 BPM P-R Int : 154 ms QRS Dur : 090 ms QT Int : 374 ms P-R-T Axes : 061 009 061 degrees QTc Int : 434 ms Sinus rhythm with Premature atrial complexes Otherwise normal ECG Confirmed by SIOMARA SARMIENTO, THERESE ([id number]), editorial director KWADWO THOMAS ([id number]) on 02/23/2022 8:19:40 AM Referred By: HIEN Confirmed By:THERESE STRINGER MD
[2022-02-20 13:41] LABS: Reflex Troponin-HS? (from REC) Y
[2022-02-20 14:17] LABS: Troponin-I HS 11 pg/mL (3.0-54.0)
[2022-02-20] MEDS: APIXABAN 5 MG TABLET 10 MG PO (14:52)
== END 2022-02-20 15:07 | disposition home or self-care (01) ==
PROVIDERS: Emergency Provider Student in an Organized Health Care Education/Training Program; PCP Family Medicine; Visit Provider Student in an Organized Health Care Education/Training Program
DX: R42 Dizziness and giddiness (principal); I48.91 Unspecified atrial fibrillation; I10 Essential (primary) hypertension; R00.2 Palpitations
CPT/HCPCS: 70450; 71045; 80048; 84484; 85025; 85379; 85610; 93005; 96361; 96374; 99285; J7030; A4216

== ENCOUNTER → 2022-03-30 | Outpatient (CLI) | payer MEDICARE, OTHER, SELFPAY ==
--- NOTE | 2022-03-30 06:50 | ECHOD_ITS ---
Reason For Study: PAF Procedure This was a 2D Doppler, Color Flow transthoracic echocardiogram. Exam performed in department. Left Ventricle Normal left ventricle. The left ventricular ejection fraction is 60 %. Normal diastology for age. Right Ventricle Normal right ventricle. Atria The left and right atria are normal. Mitral Valve Trivial mitral valve insufficiency. Tricuspid Valve Trivial tricuspid valve insufficiency. Normal pulmonary artery pressure. Aortic Valve Trisinus/trileaflet aortic valve. Trivial aortic valve insufficiency. Pulmonic Valve The pulmonic valve is not well visualized. Great Vessels Normal sized aortic root. Pericardium/Pleural No pericardial effusion. MMode/2D Measurements & Calculations LVIDd: 4.8 cm IVSd: 0.95 cm Ao root diam: 2.9 cm LVIDs: 3.1 cm LVPWd: 0.89 cm RVDd: 2.3 cm FS: 35.0 % LAV(MOD-bp): 39.1 ml LA A4 area: 15.8 cm2 LA dimension(2D): 3.6 cm LAV(MOD-bp) Indexed: 23.4 ml/m2 LAV(MOD-sp2): 38.0 ml LAV(MOD-sp4): 38.5 ml RA A4 area: 10.7 cm2 Time Measurements MV dec time: 0.33 sec Doppler Measurements & Calculations MV E max hua: 67.8 cm/sec Lat Peak E' Hua: 5.8 cm/sec Med Peak E' Hua: 7.9 cm/sec MV A max hua: 94.3 cm/sec E/E' lat: 11.7 E/E' med: 8.5 MV E/A: 0.72 MV dec slope: 207.9 cm/sec2 Ao V2 max: 114.0 cm/sec AI max hua: 409.1 cm/sec Ao max P.2 mmHg AI max P.1 mmHg Ao V2 mean: 81.9 cm/sec AI dec slope: 334.3 cm/sec2 Ao mean P.0 mmHg AI P1/2t: 358.4 msec Ao V2 VTI: 30.5 cm AV (velocity ratio): 0.78 LV V1 max: 93.2 cm/sec PA V2 max: 82.8 cm/sec TR max hua: 230.8 cm/sec LV V1 max P.5 mmHg TR max P.9 mmHg LV V1 mean P.6 mmHg LV V1 mean: 58.4 cm/sec LV V1 VTI: 23.6 cm ECHO/Echo Complete Interpretation Summary The left ventricular ejection fraction is 60 %. Ordering Physician: Evi White Referring Physician: Maurice Hanks Performed By: Sirena Shetty RDCS, RVT
--- NOTE | 2022-03-30 16:32 | STRESSREP ---
Stress Test Report Date: 03/30/2022 Procedure: Pharmacologic stress nuclear imaging study Indications: Arrhythmia Consent: Per the patient Procedure: The patient underwent pharmacologic (Regadenoson 0.4mg ) evaluation with a peak heart rate of 94 beats per minute (70%predicted maximal heart rate) and a peak blood pressure of 158/90 mmHg. The baseline ECG demonstrated normal sinus rhythm. The peak pharmacologic ECG demonstrated no ischemic changes. Single isolated PVC noted post Lexiscan infusion. There was no complaint of chest discomfort during pharmacologic infusion or recovery. The patient was injected with 11.6 millicuries of technetium 99m Cardiolite and subsequently rest SPECT Cardiolite nuclear imaging was obtained in the horizontal long, vertical long, and short axis views. The patient underwent pharmacologic (Regadenoson) evaluation. The patient was injected with 30.2 millicuries of technetium 99m Cardiolite and subsequently stress SPECT Cardiolite nuclear imaging was obtained in the horizontal long, vertical long, and short axis views. A gated Cardiolite study at peak stress was obtained. The examination was stopped secondary to completion of protocol. Rest and stress SPECT Cardiolite nuclear imaging status post realignment, normalization, and attenuation correction demonstrate no fixed or reversible perfusion defects. There is end systolic thickening and brightening. The gated Cardiolite study demonstrates myocardial thickening and inward wall motion. The reported LVEF is 68%. Impression: 1. Pharmacologic (Regadenoson) evaluation 2. Peak pharmacologic ECG with no ischemic changes. 3. Single isolated PVC noted. 5. No fixed or reversible perfusion defects noted. 6. The gated Cardiolite study reports an LVEF of 68%. This note was generated with [employer] software. It may contain incorrect words, spelling, and punctuation that were not noted in checking the note before signing.
== END | disposition home or self-care (01) ==
LOC: CVS 06:49
PROVIDERS: PCP Family Medicine; Visit Provider Internal Medicine Cardiovascular Disease
DX: I48.0 Paroxysmal atrial fibrillation (principal); R94.31 Abnormal electrocardiogram [ECG] [EKG]
CPT/HCPCS: 78452; 93017; 93306; A9500; A4216; J2785